=== PATIENT | female | born 1970 | race Caucasian/White ===

== ENCOUNTER → 2017-06-27 08:51 | Outpatient (CLI) | payer BC, SELFPAY ==
[2017-06-27 12:32] LABS: Cholesterol 222 mg/dL (200); High Density Lipoprotein 48 mg/dL; Triglycerides 75 mg/dL; Very Low Density Lipoprotein 15 mg/dL (5-40)
== END ==
PROVIDERS: Family Provider Family Medicine; PCP Family Medicine; Visit Provider Family Medicine
DX: E78.5 Hyperlipidemia, unspecified (principal)
CPT/HCPCS: 36415; 80061

== ENCOUNTER → 2018-09-26 10:56 | Outpatient (CLI) | payer BC, SELFPAY ==
[2018-09-26 12:18] LABS: Cholesterol 194 mg/dL (200); High Density Lipoprotein 51 mg/dL; Triglycerides 111 mg/dL; Very Low Density Lipoprotein 22 mg/dL (5-40)
== END ==
PROVIDERS: Family Provider Family Medicine; PCP Family Medicine; Visit Provider Family Medicine
DX: E78.5 Hyperlipidemia, unspecified (principal)
CPT/HCPCS: 36415; 80061

== ENCOUNTER → 2019-04-03 11:07 | Outpatient (CLI) | payer BC, SELFPAY ==
[2017-10-17 13:15] VITALS: BMI 30.7
--- NOTE | 2019-04-03 11:15 | RAD_ITS ---
STUDY: X-RAY CHEST REASON FOR EXAM: Female, 48 years old. RIGHT SIDE CHEST PAIN, AXILLARY AREA TECHNIQUE: Frontal and lateral views of the chest were performed COMPARISON: None. FINDINGS: There is an ill-defined right middle lobe opacity. There is no pneumothorax, pulmonary edema, pleural effusions or cardiomegaly. Osseous structures are intact. RAD/Chest PA and Lateral IMPRESSION: 1. Right middle lobe opacity, in the acute inflammatory setting pneumonia is most likely. Otherwise CT of the chest is recommended for definitive evaluation of underlying lung parenchyma for possible mass lesion such as lung cancer. Electronically Signed: Josué Moore, at 19:46 EST Tel , Service support ,
== END ==
LOC: MTRAD 11:10
PROVIDERS: PCP Family Medicine; Referring Provider Family Medicine; Visit Provider Family Medicine
DX: R07.9 Chest pain, unspecified (principal); R07.89 Other chest pain
CPT/HCPCS: 71046

== ENCOUNTER → 2019-04-24 13:40 | Outpatient (CLI) | payer BC, SELFPAY ==
--- NOTE | 2019-04-24 13:49 | CT_ITS ---
STUDY: CT CHEST WITH CONTRAST REASON FOR EXAM: Female, 48 years old. Right anterior chest pain x 2 months, cough, abnormal CXR, no injury, smokes less than 1 pack/day. No hypertension, diabetes, cancer, heart or lung problems. RADIATION DOSAGE (If Supplied By Facility): CTDIvol = ( 10.23 ) mGy, DLP = ( 364.35 ) mGycm TECHNIQUE: Transaxial imaging was performed following intravenous administration of IV 100mL Isovue-300. Multiplanar coronal and sagittal images were reformatted. Individualized dose optimization techniques were used for this CT. COMPARISON: Comparison is made with prior chest radiograph dated April 03, 2011. FINDINGS: There is airspace disease along the lateral aspect of the right upper lobe. This abuts the major fissure. Small right pleural effusion. Volume loss in the right hemithorax. There is evidence of a 3.3 cm x 2.7 cm soft tissue density in the region of the right hilum. Findings are suggestive of a right hilar mass with postobstructive pneumonitis. There is a 5.4 mm nodule in the inferior posterior aspect of the right upper lobe. There is also evidence of infiltration in the lateral aspect of the right middle lobe measuring 2.8 cm x 2.4 cm. A neoplastic process should be ruled out. Correlation with a PET scan is recommended. Normal heart and pericardium. Enlargement of the subcarinal lymph nodes. There is enlargement of the right hilar lymph nodes. Normal enhanced pulmonary arteries. Normal aorta arch and descending thoracic aorta. Normal osseous structures. There is no demonstrated abnormality of the visualized upper abdomen. CT/Chest WITH Contrast IMPRESSION: Small right pleural effusion with the right hilar soft tissue mass and findings suggestive of postobstructive pneumonitis in the right upper lobe. Focal nodular infiltrate is seen in the right middle lobe. A neoplastic process should be ruled out. Correlation with a PET scan is recommended. A 5.4 mm nodule is also seen in the inferior posterior aspect of the right upper lobe. Electronically Signed: Alok Dunlap, at 15:16 EDT , Service support ,
== END ==
PROVIDERS: PCP Family Medicine; Referring Provider Family Medicine; Visit Provider Family Medicine
DX: R93.89 Abnormal findings on diagnostic imaging of other specified body structures (principal); R05 Cough; R07.89 Other chest pain
CPT/HCPCS: 71260; Q9967

== ENCOUNTER → 2019-04-29 | Outpatient (CLI) | payer BC, SELFPAY ==
[2019-04-29 11:47] LABS: Absolute Lymphocyte Count 1.98 X10^3/uL (0.83-4.51); Absolute Neutrophil Count 7.1 X10^3/uL (2.0-7.7); Basophil# 0.07 X10^3/uL; Basophil% 0.6 % (0-1); Eosinophils% 10.2 % (0-5); Hematocrit 44.5 % (37-47); Hemoglobin 14.5 g/dL (12.0-15.0); Lymphocyte # 1.98 X10^3/ul (4.0); Lymphocyte % 18.4 % (19-41); Mean Corp Hgb Conc 32.6 g/dL (32-36); Mean Corpuscular Hgb 29.8 pg (27.0-32.0); Mean Corpuscular Volume 91.6 fL (81-99); Mean Platelet Vol. 9.7 fl (6.2-12.0); Monocyte# 0.57 X10^3/uL; Monocyte% 5.3 % (0-10); NRBC Flagged by Analyzer 0 % (0-5); Neutrophil # 7.05 X10^3/uL (2.7-7.7); Neutrophil % 65.3 % (47-70); Platelet Count 336 K/mm3 (150-450); RBC Distribution Width CV 12.8 % (11.6-14.6); RBC Distribution Width SD 42.9 fl (35.1-43.9); Red Blood Count 4.86 M/mm3 (4.2-5.4); White Blood Count 10.8 K/mm3 (4.4-11.0)
[2019-04-29 11:53] LABS: Prothrombin Time (Protime)PT. 13.1 SECONDS (11.7-14.9)
[2019-04-29 11:54] LABS: Partial Thromboplast Time 32.5 Seconds (24.1-36.2)
== END | disposition home or self-care (01) ==
LOC: PAVLAB 11:33
PROVIDERS: PCP Family Medicine; Referring Provider Internal Medicine Critical Care Medicine; Visit Provider Internal Medicine Critical Care Medicine
DX: R59.0 Localized enlarged lymph nodes (principal)
CPT/HCPCS: 36415; 85025; 85610; 85730

== ENCOUNTER → 2019-05-01 09:51 | Outpatient (CLI) | payer BC, SELFPAY ==
[2017-10-17 13:15] VITALS: BMI 30.7
--- NOTE | 2019-05-02 05:34 | PFTCOMP ---
COMPLETE PULMONARY FUNCTION TEST INTERPRETATION Brief HPI: Patient is a 48 year old female, currently under the care of myself, who presents to [facility] for complete pulmonary function tests secondary to diagnosis of lymphadenopathy. Respiratory therapist reports good effort and reproducible results. Interpretation: Forced expiration spirometry shows no large airways obstructive ventilatory defect with an FEV1 of 86% predicted. There is no significant bronchodilator response by strict ATS criteria. Spirograms are of good quality and plateau normally. The respiratory flow volume loop shows a normal pattern. Lung volumes by body plethysmography show a normal total lung capacity at 4.23 L, 96% predicted. All other lung volumes are within normal limits. Diffusion capacity by carbon monoxide is decreased at 60% predicted. The airway resistance is normal. No previous pulmonary function tests were available for review. Impression: Isolated reduction in diffusion capacity and a pattern consistent with a pulmonary vascular disorder.
== END ==
LOC: PSN 09:52
PROVIDERS: PCP Family Medicine; Referring Provider Internal Medicine Critical Care Medicine; Visit Provider Internal Medicine Critical Care Medicine
DX: R59.0 Localized enlarged lymph nodes (principal)
CPT/HCPCS: 94060; 94726; 94729

== ENCOUNTER 2019-05-09 10:51 | Day surgery (SDC) | payer BC, SELFPAY ==
[2017-10-17 13:15] VITALS: BMI 30.7
[2019-05-09] VITALS (7 sets, daily range): BP systolic 98–134; BP diastolic 60–81; PULSE 91–114; RESP 16–18; TEMP 36.1–36.6; O2SAT 95–99; BMI 31.6
--- NOTE | 2019-05-09 | FLU_PTH ---
PATIENT: CHRISTY LACKEY LOC: [facility] [place] U#:[id number] AGE/SX: 48/F ROOM: RE05/09/[address]: Dr. Az Watkins MD : 1970 BED: DIS: 05/09/2019 SPEC #: [id number] RECD: 05/09/19 13:21 STATUS: RICKI RETaylor #: [id number] ARMINDA: 05/09/19 00:[address]: Az Watkins DEPT: CYTOLOGY RECD BY: Gilles Loo ENTERED: 05/09/19 13:21 SP TYPE: Fluid OTHR DR: Dr. Elke Gonzalez DO Tissues: A - Lung, NOS B - Lung, NOS C - Lung, NOS D - Lung, NOS E - Lung, NOS Procedures: Special Stain Group II Surgery Specimen Level IV Cytospin Fluid Cytology Other HEADER OPERATION: EBUS PRE-OP DIAGNOSIS: RML collapse TISSUE SUBMITTED: A-D - EBUS, TBNA, aspirations 1-4, site 7, E - EBUS, TBNA, site 7 DIAGNOSIS CYTOLOGY A. EBUS, TBNA, aspiration #1, site 7: Adequate for evaluation. Polymorphous lymphocytes present. No evidence of carcinoma. B. EBUS, TBNA, aspiration #2, site 7: Adequate for evaluation. Polymorphous lymphocytes present. No evidence of carcinoma. C. EBUS, TBNA, aspiration #3, site 7: Adequate for evaluation. Polymorphous lymphocytes present. No evidence of carcinoma. D. EBUS, TBNA, aspiration #4, site 7: Positive for malignant cells consistent with small cell carcinoma. E. EBUS, TBNA, site 7 (cell block): Positive malignant cells consistent with small cell carcinoma. See comment. AM:nadine 05/14/19 COMMENT The specimen is evaluated at the time of procedure by Dr. Davis. Immediate Evaluation: A. EBUS, TBNA, aspiration #1, site 7: Adequate for evaluation. Polymorphous lymphocytes present. No evidence of carcinoma. B. EBUS, TBNA, aspiration #2, site 7: Adequate for evaluation. Polymorphous lymphocytes present. No evidence of carcinoma. C. EBUS, TBNA, aspiration #3, site 7: Adequate for evaluation. Polymorphous lymphocytes present. No evidence of carcinoma. D. EBUS, TBNA, aspiration #4, site 7: Adequate for evaluation. Abundant polymorphous lymphocytes/small blue cells. No evidence of adenocarcinoma. E. Immunohistochemistry ([id number]) supports the above diagnosis. Flow cytometric analysis of aspirate material reveals a non-hematolymphoid neoplasm with neuroendocrine differentiation consistent with small cell carcinoma. There is no evidence of lymphoma. The flow report is viewable in EMR. Case was discussed with Dr. Watkins on 05/14/19. Case has been reviewed in consultation with Dr. Ozuna who concurs with the above diagnosis. IDC:SJ CYTOLOGY STUDY Slides are reviewed. CYTOLOGY GROSS A - Received labeled with the patient's name and and designated EBUS, TBNA, aspiration #1, site 7. The specimen consists of two smears. The smears are submitted for immediate cytologic evaluation (wet read). B - Received labeled with the patient's name and and designated EBUS, TBNA, aspiration #2, site 7. The specimen consists of two smears. The smears are submitted for immediate cytologic evaluation (wet read). C - Received labeled with the patient's name and and designated EBUS, TBNA, aspiration #3, site 7. The specimen consists of two smears. The smears are submitted for immediate cytologic evaluation (wet read). D - Received labeled with the patient's name and and designated EBUS, TBNA, aspiration #4, site 7. The specimen consists of two smears. The smears are submitted for immediate cytologic evaluation (wet read). E - Received is 40 ml of red, cloudy fluid in RPMI labeled with the patient's name and and designated EBUS, TBNA, site 7 submitted for cell block. / AM:nadine 05/09/19 TC:0 CPT: 70384 x4, 38811 x4, 55333
--- NOTE | 2019-05-09 | IMM_PTH ---
PATIENT: CHRISTY LACKEY LOC: [facility] [place] U#:[id number] AGE/SX: 48/F ROOM: RE05/09/[address]: Dr. Az Watkins MD : 1970 BED: DIS: 05/09/2019 SPEC #: [id number] RECD: 05/12/19 12:09 STATUS: RICKI REQ #: [id number] ARMINDA: 05/09/19 00:[address]: Az Watkins DEPT: IMMUNOHISTOCHEMISTRY RECD BY: Rachel Humphreys ENTERED: 05/12/19 12:11 SP TYPE: IMMUNO OTHR DR: Dr. Elke Gonzalez DO Tissues: E - Lung, NOS Procedures: Synapto (add) NAPSIN A (add) CD45 (add) CD56 (add) CEA (add) CHROMO (add) CK19 (add) CK20 (add) CK7 (add) CK8 (add) KI-67 (add) P53 (add) TTF1 (add) Pankeratin (initial) NSE (add) PHYSICIAN & INSTITUTION [address] [address] SPECIMEN INFORMATION: Tissue Source: E - EBUS, TBNA, site 7 Clinical Info: MARK allen Specimen Number: [id number] CPT code: 39814, 33022 x14 METHODOLOGY: Deparaffinized sections of prefer/formalin-fixed tissue or PAP/DQ stained slides are incubated with monoclonal/polyclonal antibodies/oligonucleotide probes. Localization is made via biotin free immunoperoxidase method. Appropriate controls are performed and reacted as expected. Results on target cell population are indicated in the following table: RESULTS: ANTIBODY / CLONE RESULT Block E AE1-3 (AE1/AE3/PCK26) negative CK8 (75norqG44) negative CD45 (RP2/18) negative CD56 (123C3.D5) positive, dim Chromo (LK2H10) positive Synapto (polyclonal) negative NSE Neuron Specific Enolase positive TTF-1 (8G7G3/1) positive Napsin A (Rabbit Polyclonal) positive CEA (11-7/TF-3HB-1) negative P53 (DO-7) positive, 30% Ki-67 (30-9) positive, 25% CK7 (OV-TL12/30) negative CK20 (KS20.8) negative CK19 (A53-B/A2.26) negative These tests were developed and their performance characteristics determined by [facility]. They may not have been cleared or approved by the U.S. Food and Drug Administration. The FDA has determined that such clearance or approval is not necessary. The above immunohistochemical/dualISH markers are ordered and reviewed by the Pathologist. INTERPRETATION: E. EBUS, TBNA, site 7: Consistent with small cell carcinoma of lung origin. Case has been reviewed in consultation with Dr. Ozuna who concurs with the above diagnosis. IDC:ELLIS AM:nadine 05/14/19
--- NOTE | 2019-05-09 10:55 | PCM.HP.BLA ---
Problem List (1) Abnormal CT scan of lung Status: Acute (2) Mediastinal lymphadenopathy Status: Acute History and Physical Date of Admission: 05/09/19 Assessment & Plan Problems 1. Mediastinal lymphadenopathy R59.[address] scan of lung R91.8 Plan Patient has a significant past medical history for smoking and a positive family history for lymphoma, melanoma and colon cancer. Patient has not had a colonoscopy in the last 7 years and has not had a mammogram in the last 3. Patient recommended to have age-appropriate testing. However, given hemoptysis and mediastinal lymphadenopathy, there is significant concern for malignancy. After review of the risks, benefits and alternatives, patient has agreed to proceed with a endobronchial ultrasound with biopsy. Differential diagnosis would include lymphoma, metastatic cancer, acute pneumonia and primary lung cancer. Presurgical labs have been ordered. Complete pulmonary function test for quantification clarification of lung function. Walking oximetry to evaluate for exertional hypoxemia. Patient will be placed empirically on antibiotics for a presumed postobstructive pneumonia. Initiate Levaquin. Obtain complete PFT and walking oximetry. CBC, PTT and PT/INR prior to bronchoscopy. Orders Orders: Bronchoscopy Today R59.0 Partial Thromboplast Time Today R59.0 Prothrombin Time w/INR Today R59.0 CBC W/Diff, Automated Today R59.0 Pulmonary Function Test (Comp) Today R59.0 Simple Pulmonary Exercise Test Today R59.0 Medications New: levofloxacin 500 mg PO Q24H 10 tabs 0RF HPI abnormal chest ct/xray: Chief Complaint: Abnormal CT Details: Patient is a 48 year old Caucasion female, currently under the care of Dr. Gonzalez, who presents for evaluation secondary to an abnormal CT scan. Patient reports she was at work in February and was moving 20-30lb cans and felt a sharp pain in her right midaxillary line. Patient did not seek medical attention until her routine followup and a CXR was ordered. This culminated in a CT described below. Patient reports a 5 lb weight loss, but attributes this to moving to first shift and improved diet. Patient has had a cough that is productive of clear to white phlegm at baseline. Patient has noted streaks of bright red blood intermittently in the last 2 weeks or so. The chest pain is improved. Patient does report a bad pneumonia in October for which she was treated with antibiotics at an urgent care with resolution. No chest pain was reported at that time. Patient reports last mammogram/pelvic exam was 3 years ago and the last colonoscopy was 9 years ago. All were reportedly normal. Patient's mother has had colon cancer, lymphoma and melanoma. Patient has no suspicious moles reported. Patient smokes 1-2 ppd and has recently tried to cut back. Documentation reviewed 12 pages of documentation were reviewed prior to the office visit. Patient does have a history of hyperlipidemia, anxiety and tobacco use. Patient does use albuterol at baseline and was recently started on prednisone therapy secondary to shortness of breath. Patient has been complaining of right-sided chest pain. Imaging personally reviewed with the patient CT chest (04/24/2019): Small right pleural effusion with a right hilar soft tissue mass and suggestion of postobstructive pneumonitis in the right upper lobe. There is a focal nodular infiltrate in the right middle lobe. A 5.4 mm nodule is also seen in the inferior posterior aspect of the right upper lobe. Intake Vital Signs 04/29/19 Weight: 78.471 kg 04/29/19 BP 135/78 H 04/29/19 Pulse 81 04/29/19 Pulse Oximetry (%) 98 04/29/19 Oxygen Delivery Method room air Intake Visit Reasons: abnormal chest ct/xray Accompanied by: mom Allergies amoxicillin [From Augmentin] Adverse Reaction (Severe, Verified 04/29/19 10:37) Vomiting clavulanic acid [From Augmentin] Adverse Reaction (Severe, Verified 04/29/19 10:37) Vomiting Medications escitalopram oxalate 20 mg tablet 20 mg PO DAILY 10/17/17 [History Confirmed 04/29/19] lorazepam 0.5 mg tablet 0.5 mg PO QHS PRN 10/17/17 [History Confirmed 04/29/19] simvastatin 5 mg tablet 5 mg PO QHS 10/17/17 [History Confirmed 04/29/19] venlafaxine 37.5 mg capsule,extended release 24 hr 37.5 mg PO QDAY #30 cap 10/17/17 [Rx Confirmed 04/29/19] zolpidem 12.5 mg tablet,extended release,multiphase 12.5 mg PO QHS PRN 10/17/17 [History Confirmed 04/29/19] albuterol sulfate 90 mcg/actuation aerosol inhaler 1 inh INHALATION ONCE 04/28/19 [History Confirmed 04/28/19] aspirin 81 mg tablet,delayed release 81 mg PO DAILY 04/28/19 [History Confirmed 04/28/19] clobetasol 0.05 % topical cream 1 applic TOPICAL BID 04/28/19 [History Confirmed 04/28/19] levofloxacin 500 mg tablet 500 mg PO Q24H #10 tab 04/29/19 [Rx Confirmed 04/29/19] PFSH Medical History Anxiety and depression (Acute) Hyperlipidemia (Acute) Tobacco abuse (Acute) history of left inguinal lymph node removal (Acute) history of right ankle surgery (Acute) Surgical History History of ankle surgery (Acute) lymph node removal (Acute) Family History Mother Hyperlipidemia Colon cancer Cancer lymphoma Osteopenia Social History (Updated 04/29/19 @ 16:[address] 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 Review of Systems Const CONSTITUTIONAL: No anorexia, No body ache, No chills, No daytime sleepiness, No fever(s), No night sweats, No stops breathing during sleep, No weight loss, No weight gain, No sleeping in chair, No orthopnea, No fatigue, No headache(s), No frequent colds, No seasonal allergies, No other EETM Ear Nose Throat Mouth: No hoarseness, No Dry mouth in morning, No change in vision, No itchy eyes, No eye pain, No Swallowing Difficulty, No ear pain, No nose bleed, No headache(s), No mouth pain, No nasal congestion, No nasal discharge, No sinus pain, No sinus pressure, No sore throat, No other Cardio Cadriovascular: No chest pain, No chest pain at rest, No chest pain with activity, No irregular heart rhythm, No shortness of breath when lying down, No palpitations, No other Resp Respiratory: Yes as per HPI, No shortness of breath at rest, No pain with cough, No chest congestion, Yes cough (in the morning), No chest tightness, No pain on inspiration, Yes Inhalers (as needed), No Increase use of Rescue Inhalers, No snoring, No apnea, Yes other (SOB upon exertion) Gastro Gastrointestional: Negative bloody stools, change in appetite, difficulty swallowing, reflux, hematemesis, melena stool, loose stool, constipation or other Genitourinary: Negative blood in urine, nocturia, pain with urination or other Musc Musculoskeletal: Negative body pain, back pain, neck pain or other Skin/Breast Skin/Breast: No dry skin, No itching, No unusual bruising, No breast lump, No other Neuro Neurological: Negative restless legs, confusion, weakness or other Psych Psychocological: Negative abnormal sleep pattern, anxiety, thoughts of hurting self/others, hopelessness or other Lymph Lymphatic: No easy bleeding, No easy bruising, No other Exam Const Constitutional: Positive conversant, cooperative, in no acute respiratory distress, well developed, well nourished, good hygiene and obese; negative wearing supplemental oxygen or ill appearing Head Head: Yes normocephalic, Yes atraumatic, No cyanosis of lips/distal nose Eyes Eye: Positive clear conjunctiva; negative nystagmus, scleral abnormality or cataract present Ears Ear: Positive hearing normal and external ears normal; negative hard of hearing Nose Nose: Yes external nose normal, No nasal polyp, Yes septum normal Mouth Mouth: Positive oral mucosae normal, no lesions and good dentition; negative oral thrush present or post nasal drip Mallampati Score: II: Mallampati Score Neck Neck: Positive normal visual inspection, full ROM and trachea midline; negative lymphadenopathy or JVD Chest Wall Chest: Positive normal inspection of the chest and symmetric chest movement; negative crepitus or tenderness Resp lung sounds: Positive diminished (right base), normal expiratory time and normal respiratory effort; negative wheezes, wheeze present on forced exhalation, rhonchi, rales, dullness to percussion or use of accessory muscles Cardio Cardiac: Positive regular rate, regular rhythm, S1 normal and S2 normal; negative murmur, rub or gallop GI GI: Positive normal to inspection, normal bowel sounds and obese; negative distended, ascites or epigastric tenderness Genitourinary: Positive deferred Musc Musculoskeletal: Positive steady gait; negative using an assistive device for ambulation, kyphosis or scoliosis Skin Pulmonary Skin Exam: Positive intact; negative lesion, rash, ulcers or erythema Pulses Pulse: Yes radial pulses present Extremities Extremities: Yes capillary refill normal, No clubbing, No cyanosis, No edema Neuro Neurologic: Yes no focal neuro deficits, Yes conversant, Yes cooperative, Yes normal cognition, Yes normal coordination, Yes normal concentration, Yes understands questions Lymph Lymphatic: No lymphadenopathy Psych Appearance: Positive grossly normal Mental Status: Positive mental status grossly normal Mood: Positive anxious mood Affect: Positive anxious affect Coding Level of Care Code Off vis,new,level 5 Diagnoses Mediastinal lymphadenopathy R59.[address] scan of lung R91.8
[2019-05-09] MEDS: Lactated Ringers 1,000 ML 100 ML IV (11:20)
--- NOTE | 2019-05-09 13:13 | OP.BRONCH_ITS ---
Patient Name: Vicki Wooten Procedure Date: 05/09/2019 11:47 AM Date of : 1970 Age: 48 Procedure: Bronchoscopy Indications: Atelectasis of the right middle lobe, Unresolving right middle lobe infiltrate, Mediastinal adenopathy Providers: Az Watkins MD Referring MD: Elke Gonzalez Medicines: See the Anesthesia note for documentation of the administered medications Complications: Hypoxia Procedure: Pre-Anesthesia Assessment: - A History and Physical has been performed. The patient's medications, allergies and sensitivities have been reviewed. - The risks and benefits of the procedure and the sedation options and risks were discussed with the patient. All questions were answered and informed consent was obtained. - Patient identification and proposed procedure were verified prior to the procedure by the nurse and the truck loader. The procedure was verified in the procedure room. After I obtained informed consent, the scope was passed under direct vision. Throughout the procedure, the patient's blood pressure, pulse, and oxygen saturations were monitored continuously. The ultrasound bronchoscope was introduced through the mouth, via laryngeal mask airway and advanced to the tracheobronchial tree of both lungs. The bronchoscope was introduced through the and advanced to the. The procedure was unusually difficult due to the patient's respiratory instability (hypoxia). Successful completion of the procedure was aided by frequent breaks out of the airway with increased PEEP per truck loader. Findings: Bilateral Lung Abnormalities: Partially obstructing (about 80% obstructed) dynamic collapse was found throughout the tracheobronchial tree. An area of friable mucosa was found throughout the tracheobronchial tree. An endobronchial ultrasound endoscope was utilized in order to assist with guiding the biopsy needle and better localize the nodule in the subcarinal area. Transbronchial biopsies were performed in the subcarinal area using a 19 gauge needle and sent for routine cytology and flow cytometry. The procedure was guided by ultrasound. Biopsy of lung tissue was obtained. Four biopsy passes were performed. Four biopsy samples were obtained. Estimated blood loss: minimal. Rapid On-Site Evaluation (KATIANA): Preliminary cytology of the lesion in the subcarinal area was suggestive of benign-appearing lymphoid tissue (final results are pending). Impression: - Atelectasis of the right middle lobe - Unresolving right middle lobe infiltrate - Mediastinal adenopathy - Dynamic collapse was found throughout the tracheobronchial tree. - Friable mucosa was found throughout the tracheobronchial tree. - Endobronchial ultrasound was performed. - Transbronchial lung biopsies were performed. - Rapid On-Site Evaluation (KATIANA): Preliminary cytology of the lesion in the subcarinal area was suggestive of benign-appearing lymphoid tissue (final results are pending). - Noted to have a vocal cord hematoma on airway inspection following EBUS Recommendation: - Discharge patient to home (ambulatory). - The patient will be observed post-procedure, until all discharge criteria are met. - Await cytology results. Procedure Code(s): --- Professional --- 32925, Bronchoscopy, rigid or flexible, including fluoroscopic guidance, when performed; diagnostic, with cell washing, when performed (separate procedure) 68283, Bronchoscopy, rigid or flexible, including fluoroscopic guidance, when performed; with transendoscopic endobronchial ultrasound (EBUS) during bronchoscopic diagnostic or therapeutic intervention(s) for peripheral lesion(s) (List separately in addition to code for primary procedure[s]) 58454, Unlisted procedure, trachea, bronchi Diagnosis Code(s): --- Professional --- J98.11, Atelectasis R91.8, Other nonspecific abnormal finding of lung field R59.0, Localized enlarged lymph nodes J98.09, Other diseases of bronchus, not elsewhere classified CPT copyright 2017 [employer]. All rights reserved. The codes documented in this report are preliminary and upon metal stamper review may be revised to meet current compliance requirements. MD Az Ware MD 05/09/2019 1:12:42 PM This report has been signed electronically. Number of Addenda: 0 Note Initiated On: 05/09/2019 11:47 AM
[2019-05-09] MEDS: Lidocaine 2% Jelly 1 APPLIC Tube (14:40)
== END 2019-05-09 14:50 | disposition home or self-care (01) ==
LOC: SDC 10:53 → AC 10:54
PROVIDERS: PCP Family Medicine; Referring Provider Family Medicine; Visit Provider Internal Medicine Critical Care Medicine
PROC: BB4BZZZ Ultrasonography of Pleura (ICD-10-PCS; CPT 31622; principal; 2019-05-09 11:30)
DX: R04.2 Hemoptysis (principal); J98.11 Atelectasis; R59.0 Localized enlarged lymph nodes; R94.2 Abnormal results of pulmonary function studies; F32.9 Major depressive disorder, single episode, unspecified; F41.9 Anxiety disorder, unspecified; F17.200 Nicotine dependence, unspecified, uncomplicated; E78.5 Hyperlipidemia, unspecified; Z79.82 Long term (current) use of aspirin; Z88.1 Allergy status to other antibiotic agents; Z88.0 Allergy status to penicillin; Z87.01 Personal history of pneumonia (recurrent)
CPT/HCPCS: 31622; 31654; 88108; 88161; 88305; 88313; 88341; 88342; J7120; J2405

== ENCOUNTER → 2019-05-13 10:48 | Outpatient (CLI) | payer BC, SELFPAY ==
[2019-05-09 11:15] VITALS: BMI 31.6
[2019-05-13 11:19] VITALS: PULSE 100; PULSE 105; PULSE 106; PULSE 126; PULSE 87; PULSE 91; O2SAT 91; O2SAT 92; O2SAT 93; O2SAT 94; O2SAT 96; O2SAT 98
--- NOTE | 2019-05-14 17:31 | PCM.PSN.6M ---
PSN 6 Minute Walk Test - 6 Minute Walk Test 6 Minute Walk Test: 6 Minute Walk Test PSN:6-Minute Walk Test Start: 05/13/19 11:13 Freq: Status: Active Protocol: RESP.6MINW Document 05/13/19 11:19 ISIAH (Rec: 05/13/19 11:22 ISIAH [id number]) 6 Minute Walk Test Date Performed 05/13/19 Time Performed 11:00 Height 5 ft 2 in Weight: 78.106 kg Weight in Pounds 172.[address]: Az Watkins Assistive device used: None Pre-test Oxygen Delivery Method Room Air Pulse Ox (%) 96 Pulse Rate (60-100 beats/min) 87 Dyspnea Melina Scale (0-10) 0 Exertion Melnia Scale (6-20) 6 1st minute Oxygen Delivery Method Room Air Pulse Ox (%) 91 Pulse Rate (60-100 beats/min) 105 H 2nd minute Oxygen Delivery Method Room Air Pulse Ox (%) 92 Pulse Rate (60-100 beats/min) 126 H 3rd minute Oxygen Delivery Method Room Air Pulse Ox (%) 93 Pulse Rate (60-100 beats/min) 100 4th minute Oxygen Delivery Method Room Air Pulse Ox (%) 91 Pulse Rate (60-100 beats/min) 106 H 5th minute Oxygen Delivery Method Room Air Pulse Ox (%) 91 Pulse Rate (60-100 beats/min) 105 H 6th minute Oxygen Delivery Method Room Air Pulse Ox (%) 94 Pulse Rate (60-100 beats/min) 105 H Dyspnea Melina Scale (0-10) 0 Exertion Melina Scale (6-20) 11 Post-test Oxygen Delivery Method Room Air Pulse Ox (%) 98 Pulse Rate (60-100 beats/min) 91 Full Laps Walked 21 Partial Lap, Number of Tiles Walked 17 Total Distance Walked (ft) 1256 - Interpretation Interpretation: The patient was able to ambulate 1256 feet over the course of 6 minutes on room air with no assistive devices or breaks. The patient did have an oxygen aminah as low as 91% and a peak heart rate of 126 bpm. These findings are consistent with a respiratory limitation exercise tolerance. - Recommendations Recommendations: No supplemental oxygen is indicated at this time. However, patient will need to be followed closely given level of desaturation.
== END ==
LOC: PSN 10:50
PROVIDERS: PCP Family Medicine; Referring Provider Internal Medicine Critical Care Medicine; Visit Provider Internal Medicine Critical Care Medicine
DX: R59.0 Localized enlarged lymph nodes (principal)
CPT/HCPCS: 94618

== ENCOUNTER → 2019-05-19 07:46 | Outpatient (CLI) | payer BC, SELFPAY ==
[2019-05-15 10:16] VITALS: BMI 31.6
--- NOTE | 2019-05-19 08:30 | PET_ITS ---
PROCEDURE: WHOLE BODY PET/CT SCAN, MID SKULL TO MID THIGH REASON FOR EXAM: Lung cancer, initial staging COMPARISON EXAMINATION: None. TECHNIQUE: Following the intravenous administration of 15.8 mCi of F-18 the deoxyglucose, multiplanar imaging acquisitions of the neck, chest, abdomen/pelvis to the mid thigh, obtained at 1 hour post radiopharmaceutical administration. Interpretation is with co-registeration of similar anatomic distribution of CT. Findings: Normal and physiologic distribution of radioisotope identified in the expected intensity of the hepatic and splenic parenchyma, urinary tract and gastrointestinal structures. There is gross anatomic distribution of the intracranial contents. INDEX LESION SIZE SUV INTERPRETATION: 1. 3.3 x 2.7 cm soft tissue mass of the anterior right hilum on CT image 87 is stable in size with SUV 7.3. Adenopathy of the subcarinal (station 7) region measures 1.5 x 2.1 cm with SUV measuring 5.6. CT portion of the exam: Small to moderate right pleural effusion is increased in size since the prior study. Subpleural dominant consolidation involving the lateral and anterior right upper lobe with generalized volume loss of the right upper lobe. Amorphous increased FDG activity with some localized areas of increased FDG activity measuring SUV 4.3. On the prior CT, there was a larger area of consolidation slightly more inferior and posterior. Granuloma in the left upper lobe is stable. There are emphysematous changes of the lungs. There is no demonstrated pleural abnormality. Heart size is stable. Trace pericardial fluid is similar. Normal mediastinum. Normal hilar regions. Normal unenhanced pulmonary arteries. Normal aorta arch and descending thoracic aorta. Normal liver. Normal gallbladder and extrahepatic biliary system. There are multiple benign calcified granulomata of the spleen. Normal pancreas. Normal bilateral adrenal glands. Normal right kidney. Normal left kidney. Normal visualized stomach. Normal small intestine. Normal colon. There is non-visualization of the appendix. There is diffuse atherosclerotic calcification of the abdominal aorta, without a demonstrated aneurysm. Normal inferior vena cava. Normal urinary bladder. There is an IUD within the uterus. No lytic or sclerotic bone lesions. PET/PET/CT Tumor Base -Thigh Init IMPRESSION: 1. ABNORMAL EXAMINATION. Right parahilar mass and subcarinal/Station 7 adenopathy meeting criteria for viable neoplasm. 2. Subpleural somewhat nodular consolidation of the right upper lobe, new since the prior study with amorphous and localized increased FDG activity, equivocal for viable neoplasm; could represent postobstructive pneumonia. Follow-up chest CT to evaluate for stability recommended in 4-6 weeks after appropriate medical therapy. 3. Mildly increased right pleural effusion. 4. Chronic changes, as detailed above. Electronically Signed: Augustine Venegas MD ([place]) at 12:31 EDT , Service support ,
== END ==
LOC: ONC 07:47
PROVIDERS: PCP Family Medicine; Referring Provider Internal Medicine Critical Care Medicine; Visit Provider Internal Medicine Critical Care Medicine
DX: C34.2 Malignant neoplasm of middle lobe, bronchus or lung (principal)
CPT/HCPCS: 78815; A9552

== ENCOUNTER → 2019-05-21 12:19 | Outpatient (CLI) | payer BC, SELFPAY ==
[2019-05-15 10:16] VITALS: BMI 31.6
[2019-05-20 11:01] VITALS: BMI 31.2
--- NOTE | 2019-05-21 12:21 | MRI_ITS ---
STUDY: MRI BRAIN WITH AND WITHOUT CONTRAST REASON FOR EXAM: Female, 48 years old. lung ca staging -- no neuro symptoms TECHNIQUE: Standardized multiplanar fat and water weighted pulse sequences were obtained. dotarem 15 ml iv was administered for the contrast portion of the examination. COMPARISON: CT of the chest dated April 24, 2019 FINDINGS: Normal size of the ventricles and extra-axial spaces for the patient''s age. Normal white matter tracts of the supratentorial brain. There is no evidence for recent intracranial ischemia or other cause of cytotoxic edema on diffusion weighted imaging (DWI). Normal T2* images of the brain without demonstrated susceptibility artifact. There is no demonstrated hemosiderin stain. Normal bilateral basal ganglia. Normal thalami. There is no extra-axial fluid accumulation. Normal flow voids within the major intracranial circulation suggesting patency by spin echo criteria. Normal venous enhancement. There is no enhancing intra-axial or extra-axial abnormality. No demonstrated enhancing lesion or abnormal meningeal or dural enhancement. Normal sella turcica, pituitary gland, infundibular stalk, optic chiasm and hypothalamus. Normal tectal plate and pineal gland. Mild patchy chronic ischemic changes are present in the giacomo and midbrain. Normal medulla. Normal cerebellum. Normal basal cisterns. Normal bilateral temporal bones. Normal bilateral internal auditory canals. No demonstrated orbital abnormality, within the constraints of a routine brain study. Normal visualized paranasal sinuses. Normal calvarium and skull base. Normal visualized soft tissue structures. Normal visualized upper cervical spine. MRI/Brain W/WO Contrast IMPRESSION: 1. Mild chronic patchy ischemic changes of the giacomo and midbrain. 2. No demonstrated acute infarct. 3. No demonstrated lesions of the brain or abnormal enhancement. Electronically Signed: Joe العلي MD at 15:27 EDT , Service support ,
== END ==
PROVIDERS: PCP Family Medicine; Referring Provider Internal Medicine Critical Care Medicine; Visit Provider Internal Medicine Critical Care Medicine
DX: C34.90 Malignant neoplasm of unspecified part of unspecified bronchus or lung (principal)
CPT/HCPCS: 70553; A9575

== ENCOUNTER 2019-05-22 09:47 | Day surgery (SDC) | payer BC, SELFPAY ==
[2019-05-20 11:01] VITALS: BMI 31.2
--- NOTE | 2019-05-20 11:16 | HP_ITS ---
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: No Is patient in pain?: No Allergies amoxicillin [From Augmentin] Adverse Reaction (Severe, Verified 05/20/19 09:37) Vomiting clavulanic acid [From Augmentin] Adverse Reaction (Severe, Verified 05/20/19 09:37) Vomiting Medications escitalopram oxalate 20 mg tablet 20 mg PO DAILY 10/17/17 [History Confirmed 05/20/19] lorazepam 0.5 mg tablet 0.5 mg PO TID 10/17/17 [History Confirmed 05/20/19] simvastatin 5 mg tablet 5 mg PO QHS 10/17/17 [History Confirmed 05/20/19] zolpidem 12.5 mg tablet,extended release,multiphase 12.5 mg PO QHS PRN 10/17/17 [History Confirmed 05/20/19] clobetasol 0.05 % topical cream 1 applic TOPICAL BID 04/28/19 [History Confirmed 05/20/19] Buspirone HCl 7.5 mg PO BID 05/02/19 [History Confirmed 05/20/19] albuterol sulfate 90 mcg/actuation aerosol inhaler 1 inh INHALATION ONCE 05/15/19 [History Confirmed 05/20/19] Bupropion HCl [Wellbutrin Sr] 150 mg PO DAILY 05/20/19 [History Confirmed 05/20/19] DiphenhydrAMINE [Benadryl] 2 tab PO QHS 05/20/19 [History Confirmed 05/20/19] Is last menstrual period known: No Post menopausal: No Patient : No PFSH Medical History Anxiety and depression (Acute) Hyperlipidemia (Acute) Tobacco abuse (Acute) history of left inguinal lymph node removal (Acute) history of right ankle surgery (Acute) Surgical History History of ankle surgery (Acute) lymph node removal (Acute) Family History Mother Hyperlipidemia Colon cancer Cancer lymphoma Osteopenia Social History (Updated 05/20/19 @ 11:[address] 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 The patient has small cell lung carcinoma. She needs access for chemotherapy. ROS General General: No weight change, appetite, fatigue, colon cancer, breast cancer or weakness HEENT HEENT: No difficulty swallowing, eye injury, eye surgery, swollen glands or hoarseness Endo Endocrine: No thyroid disease, diabetes mellitus, thyroid cancer, Hair loss, heat intolerance or cold intolerance Cardio Cardiovascular: No murmur, pacemaker, heart disease, atrial fibrillation, high blood pressure, heart attack, heart stent, palpitations, shortness of breat with exertion or chest pain Resp Respiratory: No shortness of breath, No sleep apnea, No cough, No COPD, No asthma, No emphysema, No wheezing Additional Details: Coughing up blood Gastro Gastrointestinal: No abdominal pain, No nausea or vomiting, No diarrhea, No constipation, No blood in stool, No acid reflux, No hemorrhoids, No ulcers, No gallbladder problem, No black,tarry stools Ed Hematologic: No blood thinners, No blood disorders, No bleeding, No anemia, No blood clots Neuro Neurologic: No weakness Exam Const General: cooperative Orientation: alert, oriented x3 Resp Effort & Inspection: normal respiratory effort Auscultation: clear to auscultation bilaterally Cardio Rate: regular rate Rhythm: regular rhythm Heart Sounds: no murmurs GI Inspection: non-distended Palpation: soft, nontender Assessment & Plan Problems 1. Small cell lung cancer C34.90 2. Tobacco abuse Z72.0 3. Encounter for adjustment and management of vascular access device Z45.2 Plan I discussed port placement with the patient in detail. I discussed the procedure in detail as well as the risks including but not limited to bleeding, infection, pneumothorax, DVT, line infection. The patient understands and is willing to proceed. All questions were answered sufficiently. Plan for port placement later this week. On 04/29/2019 the [place] Department of Health ([facility]) Public Order signed by [facility] Director Coby Ivory M.D., regarding the Management of Non-Essential Surgeries and Procedures for the purpose of preserving Personal Protective Equipment (PPE) and critical hospital capacity and resources within [place] went into effect as of 04/30/2019 at 5:00PM. According to the [facility] Public Order: This action will remain in full force and effect until the State of Emergency declared by the Governor no longer exists or the Director of the [facility] rescinds or modifies this Order. This [facility] order stated all non-essential or elective surgeries and procedures that utilize PPE should be delayed unless there is undue risk to the current or future health of a patient. After reviewing the aforementioned [facility] Public Order and the patients clinical case, I have determined that the scheduled procedure meets the criteria to go forward. Reason for performing procedure: There is a risk of metastasis or progression of staging. Bill Robles MD Pager: [facility] [address] [place] [address], [address] [place] [address] Office: Coding Level of Care Code Off vis,new,level 3 Diagnoses Small cell lung cancer C34.90 Tobacco abuse Z72.0 Encounter for adjustment and management of vascular access device Z45.2 05/20/19 1116 <Electronically signed by Bill pearce MD> Date _ Bill Robles MD I have re-examined the patient. There are no clinical changes since date of exam.
[2019-05-22 10:23] VITALS: BP 116/73; PULSE 82; RESP 16; TEMP 37; O2SAT 97; BMI 31.1
[2019-05-22] MEDS: Lactated Ringers 1,000 ML 100 ML IV (10:26)
[2019-05-22] MEDS: Bupiv/Epi 0.5% Mpf 30 ML Vial (11:50)
[2019-05-22 12:15] VITALS: BP 101/65; BP 116/73; PULSE 86; RESP 16; TEMP 36.6; O2SAT 97
[2019-05-22 12:20] VITALS: BP 111/70; BP 116/73; PULSE 78; RESP 16; O2SAT 97
[2019-05-22 12:25] VITALS: BP 100/71; BP 116/73; PULSE 76; RESP 16; O2SAT 98
--- NOTE | 2019-05-22 12:26 | RAD_ITS ---
STUDY: X-RAY CHEST REASON FOR EXAM: Female, 48 years old. post port placement TECHNIQUE: 2 AP portable view of the chest. COMPARISON: April 03, 2019. PET CT exam dated May 19, 2019 FINDINGS: 1. Interval appearance of mild irregular consolidation in the inferior aspect of the right upper lobe. 2. Interval worsening of edema/consolidation of the right lower lobe now involving the mary, medial basilar segment, and the original finding in the midline. Severity is moderate. 3. A small right lower lobe pleural effusion is present. 4. The left lung is clear. 5. Interval placement of a right chest port with a catheter terminating in the mid SVC. 6. No pneumothorax is seen. 7. Normal heart size. Stable osseous structures. RAD/CXR for Line Placement IMPRESSION: * Newly developed mild right upper lobe infiltrate * Interval worsening of right lower lobe edema and infiltrates, moderate in severity. Findings correspond to the PET CT exam showing a mass in this region. Parapneumonic consolidation is also a possibility. Electronically Signed: Joe العلي MD at 13:05 EDT , Service support ,
--- NOTE | 2019-05-22 12:26 | PCM.OPRPT ---
Problem List (1) Encounter for adjustment and management of vascular access device Status: Acute (2) Small cell lung cancer Status: Acute Report of Operation Date of Procedure: 05/22/19 Pre-Operative Diagnosis: Small cell lung carcinoma need for vascular access Post-Operative Diagnosis: Same Surgery/Procedure Performed:: Ultrasound and fluoroscopy guided right chest port placement utilizing right IJ Description of Procedure: After obtaining informed consent patient was brought back to the operating room MAC anesthesia was induced and the right chest and neck were prepped in normal sterile fashion. Ultrasound was used to evaluate both IJs and the right IJ was selected. Next, using a needle, the right IJ was accessed and a guidewire was passed on into the superior vena cava under fluoroscopy guidance. A small incision was made over the puncture site and the dilator introducer was placed over the guidewire. Next this was capped and the pocket was made for the port. 1% lidocaine with epinephrine was injected in the proposed port site. An incision was made with scalpel. Electrocautery was used to make a pocket under the skin and subcutaneous tissue. Hemostasis was obtained. Next, the catheter was tunneled up to the neck incision site and placed through the introducer. The peel-away introducer was removed and the position of the catheter was confirmed on fluoroscopy. Next, the catheter was trimmed and attached to the port with the locking device. Interrupted 2-0 Vicryl sutures were used to anchor the port to the chest wall and then the port was placed inside the pocket. The pocket was then flushed with saline and the port irrigated with saline. There was good blood return and the port flushed easily. Next, heparin was injected into the port. The skin was closed with subcutaneous interrupted 3-0 Vicryl sutures. A single 3-0 Vicryl sutures placed under the skin at the neck incision site. Steri-Strips were placed as well as op sites. Patient tolerated procedure well, was taken to PACU in stable condition. Chest x-ray will be obtained. Grafts/Implants Used: 8 Hebrew PowerPort - Admit VTE Documentation VTE Mechan Device Prophylaxis: SCD's
--- NOTE | 2019-05-22 12:28 | DCINST_ITS ---
Discharge Diet: No Restrictions - Pain medication may cause nausea. You should typically eat light foods as you take your pain medication. Discharge Activity: Return to Normal Activity, May Shower - with your bandage in place in 1-2 days after surgery. DO NOT SHOWER WHEN YOUR PORT IS ACCESSED. Call your doctor if your incision/area has: Continuous Slow Oozing, Sudden Increased Bleeding, Increased Pain/ Swelling, Increased Redness Call your doctor if you observe: Fever of 101 or Higher Remove Dressing in (days):: 3 - When you remove the bandage, Remove steri strips in 7-10 days Allergies/Adverse Reactions: Allergies amoxicillin [From Augmentin] Adverse Reaction (Severe, Verified 05/20/19 15:10) Vomiting clavulanic acid [From Augmentin] Adverse Reaction (Severe, Verified 05/20/19 15:10) Vomiting Medications to take at Discharge escitalopram oxalate 20 mg tablet 20 mg PO DAILY 10/17/17 lorazepam 0.5 mg tablet 0.5 mg PO TID 10/17/17 simvastatin 5 mg tablet 5 mg PO QHS 10/17/17 zolpidem 12.5 mg tablet,extended release,multiphase 12.5 mg PO QHS PRN 10/17/17 clobetasol 0.05 % topical cream 1 applic TOPICAL BID 04/28/19 Buspirone HCl 7.5 mg PO BID 05/02/19 albuterol sulfate 90 mcg/actuation aerosol inhaler 1 inh INHALATION ONCE 05/15/19 Bupropion HCl [Wellbutrin Sr] 150 mg PO DAILY 05/20/19 DiphenhydrAMINE [Benadryl] 2 tab PO QHS 05/20/19 Primary Care Physician: Elke Gonzalez DO [Primary Care Provider] - Test Results: Test results from this visit will be discussed in further detail at your follow- up appointment, if applicable. Please Follow Up With: Bill Robles MD When: Will call you for follow up. If there are any issues call [phone]
[2019-05-22 12:30] VITALS: BP 116/73; BP 120/69; PULSE 76; RESP 16; TEMP 36.6; O2SAT 98
[2019-05-22] MEDS: Acetaminophen 325 MG Tablet PO (12:48)
[2019-05-22] MEDS: oxyCODONE 5 MG Tablet PO (12:49)
[2019-05-22 13:15] VITALS: BP 116/73
== END 2019-05-22 13:23 | disposition home or self-care (01) ==
LOC: SDC 09:49 → AC 09:49
PROVIDERS: PCP Family Medicine; Referring Provider Surgery; Visit Provider Surgery
PROC: (CPT 36561; principal; 2019-05-22 11:15)
DX: Z45.2 Encounter for adjustment and management of vascular access device (principal); C34.90 Malignant neoplasm of unspecified part of unspecified bronchus or lung; E78.5 Hyperlipidemia, unspecified; F32.9 Major depressive disorder, single episode, unspecified; F41.9 Anxiety disorder, unspecified; F17.200 Nicotine dependence, unspecified, uncomplicated; Z78.0 Asymptomatic menopausal state; Z79.899 Other long term (current) drug therapy; Z88.0 Allergy status to penicillin; Z88.1 Allergy status to other antibiotic agents
CPT/HCPCS: 36561; 76937; 71045; 77001; J7120; C1788; J2405

== ENCOUNTER 2019-06-06 10:57 | Emergency (ER) | payer BC, SELFPAY ==
[2019-05-27 13:36] VITALS: BMI 31.4
[2019-06-05 10:21] VITALS: BMI 31.6
[2019-06-06 11:00] VITALS: BP 141/71; PULSE 111; RESP 18; RESP 19; TEMP 36.7; O2SAT 96; BMI 32.0
--- NOTE | 2019-06-06 11:40 | CT_ITS ---
STUDY: CTA CHEST REASON FOR EXAM: Female, 48 years old. PE SMALL CELL LUNG-CHEMO CURRENTLY RADIATION DOSAGE (If Supplied By Facility): CTDIvol = ( 10.05 ) mGy, DLP = ( 376.80 ) mGycm TECHNIQUE: The examination was performed with the intravenous administration of 75cc ISOVUE 370. Post-processing of the angiographic images was performed, with multiplanar reformation and 3D reconstruction. Individualized dose optimization techniques were used for this CT. COMPARISON: Comparison is made with prior CT scan of the thorax dated April 24, 2019. FINDINGS: Normal enhancement of the main pulmonary artery and right and left pulmonary arteries. Normal enhancement of the bilateral peripheral pulmonary arteries. There is no demonstrated pulmonary embolism. Normal thoracic aorta and visualized great vessels. There is no demonstrated aortic dissection. Normal heart and pericardium. Decreased size of the subcarinal mediastinal lymph nodes. There has been a decrease in size of the right hilar lymph nodes. Normal visualized trachea and bronchi. The lungs are well expanded. The previously seen consolidation in the lateral aspect of the right upper lobe has improved. Residual consolidation in the peripheral aspect of the right upper lobe persists. Evidence of a 1.8 cm x 2.2 cm soft tissue density. Small right pleural effusion. Normal chest wall structures. There are degenerative changes of thoracic spine. Normal visualized upper abdomen. CT/CTA Chest W/WO Contrast IMPRESSION: No evidence of pulmonary embolism. Small right pleural effusion. Interval improvement in the infiltration in the peripheral aspect of the right upper lobe as described. Decreased size of the right hilar and mediastinal lymphadenopathy. Electronically Signed: Alok Dunlap, at 13:02 EDT , Service support ,
--- NOTE | 2019-06-06 11:40 | EKG12_ITS ---
Test Reason : RIGHT FLANK PAIN Blood Pressure : / mmHG Vent. Rate : 082 BPM Atrial Rate : 082 BPM P-R Int : 158 ms QRS Dur : 076 ms QT Int : 376 ms P-R-T Axes : 055 073 055 degrees QTc Int : 439 ms Normal sinus rhythm Normal ECG Confirmed by CAMERON JUDGE, PAL ([id number]), metropolitan editor NORA PIERSON ([id number]) on 06/09/2019 10:06:52 AM Referred By: HEIDY Confirmed By:PAL BARNES MD
--- NOTE | 2019-06-06 11:44 | NURSING ---
NO OLD EKGS
[2019-06-06 11:47] VITALS: O2SAT 97
[2019-06-06] MEDS: Aspirin 81 MG TAB.CHEW 324 MG PO (11:53)
[2019-06-06] MEDS: 0.9% Normal Saline 1,000 ML 1000 ML IV (11:53)
[2019-06-06 11:58] LABS: Absolute Lymphocyte Count 0.92 X10^3/uL (0.83-4.51); Absolute Neutrophil Count 3.7 X10^3/uL (2.0-7.7); Basophil# 0.05 X10^3/uL; Basophil% 0.9 % (0-1); Eosinophil# 0.18 X10^3/uL; Eosinophils% 3.3 % (0-5); Hematocrit 39.5 % (37-47); Hemoglobin 12.7 g/dL (12.0-15.0); Lymphocyte # 0.92 X10^3/ul (4.0); Mean Corp Hgb Conc 32.2 g/dL (32-36); Mean Corpuscular Hgb 29.5 pg (27.0-32.0); Mean Corpuscular Volume 91.6 fL (81-99); Mean Platelet Vol. 10.2 fl (6.2-12.0); Monocyte# 0.48 X10^3/uL; Monocyte% 8.9 % (0-10); NRBC Flagged by Analyzer 0 % (0-5); Neutrophil # 3.72 X10^3/uL (2.7-7.7); POSITIVE MORPHOLOGY YES; Platelet Count 173 K/mm3 (150-450); RBC Distribution Width CV 13.2 % (11.6-14.6); RBC Distribution Width SD 44.5 fl (35.1-43.9); Red Blood Count 4.31 M/mm3 (4.2-5.4); White Blood Count 5.4 K/mm3 (4.4-11.0)
[2019-06-06 11:59] LABS: Differential Indicated SCAN CRITERIA MET
[2019-06-06 12:10] LABS: ALB/GLOB Ratio 0.8 RATIO (0.9-2.4); AST(SGOT) 45 U/L (15-37); Alanine Aminotransfer ALT/SGPT 107 U/L (13-56); Albumin, Serum 3.6 g/dL (3.2-5.0); Alkaline Phosphatase 151 U/L (45-117); Anion Gap 6 (5-15); BUN 10 mg/dL (7-18); BUN/Creat Ratio 11.2 RATIO (10-20); Calcium,Total 9.4 mg/dL (8.5-10.1); Chloride 106 mmol/L (98-107); EST Glomerular Filtration Rate 71 mL/min (>60); Est Glom Filt Rate - Afr Amer 86 mL/min (>60); Estimated Creatinine Clearance 60.46 ml/min; Globulin 4.5 g/dL (2.2-4.2); Glucose 118 mg/dL (74-106); Lipase 56 U/L (73-393); Protein, Total 8.1 g/dL (6.4-8.2); Sodium Level 138 mmol/L (136-145)
[2019-06-06 13:00] VITALS: BP 112/77; PULSE 80; RESP 17; O2SAT 100
--- NOTE | 2019-06-06 13:22 | ED.DCSUM_ITS ---
- ER Visit Summary Date of Service: 06/06/19 Chief Complaint: Chest pain History of Present Illness: The patient is a [address] Gonzalez and Dr. Oleary. She has a history of lung cancer. She has had 3 doses of chemo of the last being May 28. Reports at 4:00 this morning she was awakened by a sha rp right-sided chest pain that lasted approximately 2-1/2 hours. It was 9-10 at worst and she is pain-free currently. It was worsened by breathing it was relieved by moving around. Patient denies any fever or chills. She denies cough or shortness of breath. She denies abdominal pain, nausea, vomiting, or diarrhea. Physical Examination: Vitals: Stable. Afebrile. General: Well-nourished and well-developed. Head: Normocephalic atraumatic. Neck: Supple, no lymphadenopathy. No JVD. Nontender. Cardiovascular: Regular rate and rhythm. No murmurs. Respiratory: No respiratory distress. Clear to auscultation bilaterally. Abdominal: Soft, nontender, nondistended, normal bowel sounds. No guarding, rebound, or peritoneal signs. Back: Nontender. Extremities: Nontender, no edema. Skin: Normal color, no rash. Neurologic: Alert and oriented ?3. Cranial nerves II through XII are intact. Normal strength and sensation. Psych: Normal affect. Test Results: EKG is sinus at 82 with no acute changes. CBC is marked for lymphocytes 17. Chem-7 shows a glucose of 118. LFTs show an ALT of 107, AST of 45, alk phos of 151. Lipase is 56. Troponin is negative. Clinical Impression(s) from Imaging Studies Chest CTA 06/06/19 11:40 IMPRESSION: No evidence of pulmonary embolism. Small right pleural effusion. Interval improvement in the infiltration in the peripheral aspect of the right upper lobe as described. Decreased size of the right hilar and mediastinal lymphadenopathy. Electronically Signed: Alok Dunlap, at 13:02 EDT , Service support , Emergency Department Course and Treatment: Patient refused pain medications. She is resting comfortably. Treatment Plan: The patient was discussed with Dr. Oleary. At this time he does not want her placed on antibiotics. She will be discharged with instructions to follow-up as previously scheduled. Return to the emergency department for any worsening symptoms. Disposition: To home in improved and stable condition. Impression: 1. Atypical chest pain. 2. History of lung cancer on chemotherapy. This note was generated with Snipshot dictation software. It may contain incorrect words, spelling, and punctuation that were not noted in review of the chart prior to signing ED Disposition - Plan for ED Patient: Disposition: Home or Assisted Living Instructions: ED Chest Pain Atypical Unkn Cause Referrals: Elke Gonzalez DO [Primary Care Provider] - Jermaine Oleary MD [STAFF PHYSICIAN] - Keep Karolina appointment
== END 2019-06-06 14:20 | disposition home or self-care (01) ==
PROVIDERS: Emergency Provider Emergency Medicine; PCP Family Medicine
DX: R07.89 Other chest pain (principal); C34.90 Malignant neoplasm of unspecified part of unspecified bronchus or lung; J90 Pleural effusion, not elsewhere classified; Z79.899 Other long term (current) drug therapy; Z72.0 Tobacco use
CPT/HCPCS: 71275; 80053; 83690; 84484; 85025; 93005; 96360; 99285; J7030; Q9967; A4216

== ENCOUNTER → 2019-08-26 12:30 | Outpatient (CLI) | payer BC, SELFPAY ==
[2019-05-27 13:36] VITALS: BMI 31.4
[2019-08-05 09:54] VITALS: BMI 30.4
[2019-08-06 14:00] VITALS: BMI 30.4
--- NOTE | 2019-08-26 12:31 | CT_ITS ---
STUDY: CT CHEST WITH CONTRAST REASON FOR EXAM: Female, 49 years old. LUNG CA,SMOKER, ASSESS RESPONSE TO CHEMO-LAST TX JULY, ALSO HAD RAD TX JUNE 2019 RADIATION DOSAGE (If Supplied By Facility): CTDIvol = ( 14.31 ) mGy, DLP = ( 997.28 ) mGycm TECHNIQUE: Transaxial imaging was performed following intravenous administration of IV 100mL Isovue-300. Multiplanar coronal and sagittal images were reformatted. Individualized dose optimization techniques were used for this CT. COMPARISON: Comparison is made with prior examination dated April 24, 2019. FINDINGS: A right-sided portacatheter is seen with the tip in the superior vena cava. The soft tissue density in the lateral aspect of the right middle lobe which abuts the right pleural surface has decreased in size. It presently measures 2.1 cm x 1.7 cm. Minimal residual increased linear markings are seen in the surrounding lung. The previously seen pleural-based soft tissue density in the lateral aspect of the right upper lobe as decreased in size as well. It presently measures 1.9 cm x 1 cm. The previously seen increased markings in the surrounding right upper lobe have improved. Residual changes persist. There is no demonstrated pleural abnormality. Normal heart and pericardium. There are multiple small lymph nodes within the mediastinum, which are normal in size and morphology most compatible with reactive lymph hyperplasia. The right hilar lymphadenopathy as improved minimal residual change persists. Normal enhanced pulmonary arteries. Normal aorta arch and descending thoracic aorta. Normal osseous structures. There is no demonstrated abnormality of the visualized upper abdomen. CT/Chest WITH Contrast IMPRESSION: Interval improvement in the peripheral based soft tissue density in the lateral aspect of the right upper lobe as well as the right middle lobe. Moderate improvement of the right hilar lymphadenopathy. Electronically Signed: Alok Dunlap, at 14:09 EDT , Service support ,
--- NOTE | 2019-08-26 12:31 | CT_ITS ---
STUDY: CT ABDOMEN WITH CONTRAST REASON FOR EXAM: Female, 49 years old. LUNG CA,SMOKER, ASSESS RESPONSE TO CHEMO-LAST TX JULY, ALSO HAD RAD TX JUNE 2019 RADIATION DOSAGE (If Supplied By Facility): CTDIvol = ( 14.31 ) mGy, DLP = ( 997.28 ) mGycm TECHNIQUE: Transaxial images were obtained post I.V. administration of IV 100mL Isovue-300, and without oral contrast. Sagittal and coronal images were reconstructed. Individualized dose optimization techniques were used for this CT. COMPARISON: None. FINDINGS: Mild degree of increased markings in the right middle lobe abutting the right major fissure. The visualized portions of the heart are within normal limits. Normal liver. Normal gallbladder and extrahepatic biliary system. There are multiple benign calcified granulomata of the spleen. Normal pancreas. Normal bilateral adrenal glands. Normal right kidney. Normal left kidney. There is a small hiatal hernia. Normal small intestine. Normal colon. The appendix is visualized and appears normal. There is scattered atherosclerotic calcification of the abdominal aorta, without a demonstrated aneurysm. Normal inferior vena cava. Normal retroperitoneum. Normal abdominal wall. Normal osseous structures. CT/Abdomen WITH IV Contrast IMPRESSION: Mild degree of increased markings in the right middle lobe. No acute abnormality seen. Electronically Signed: Alko Dunlap, at 13:59 EDT , Service support ,
[2019-08-26] MEDS: 0.9% Saline Lock 10 ML Syringe IV (12:50)
== END ==
PROVIDERS: PCP Family Medicine; Referring Provider Internal Medicine Hematology & Oncology; Visit Provider Internal Medicine Hematology & Oncology
DX: C34.90 Malignant neoplasm of unspecified part of unspecified bronchus or lung (principal)
CPT/HCPCS: 71260; 74160; Q9967; A4216

== ENCOUNTER → 2019-08-28 13:14 | Outpatient (CLI) | payer BC, SELFPAY ==
[2019-05-27 13:36] VITALS: BMI 31.4
[2019-08-05 09:54] VITALS: BMI 30.4
[2019-08-06 14:00] VITALS: BMI 30.4
--- NOTE | 2019-08-28 13:15 | MRI_ITS ---
STUDY: MRI BRAIN WITH AND WITHOUT CONTRAST REASON FOR EXAM: Female, 49 years old. SMALL CELL LUNG CA, METS TECHNIQUE: Standardized multiplanar fat and water weighted pulse sequences were obtained. IV 15cc dotarem was administered for the contrast portion of the examination. COMPARISON: None. FINDINGS: Normal size of the ventricles and extra-axial spaces for the patient''s age. Normal white matter tracts of the supratentorial brain. There is no evidence for recent intracranial ischemia or other cause of cytotoxic edema on diffusion weighted imaging (DWI). Normal bilateral basal ganglia. Normal thalami. There is no extra-axial fluid accumulation. Normal flow voids within the major intracranial circulation suggesting patency by spin echo criteria. Normal venous enhancement. There is no enhancing intra-axial or extra-axial abnormality. There is enlargement of the sella turcica with increased CSF within the sella and flattening of the pituitary gland consistent with an empty sellar syndrome. Normal infundibular stalk, hypothalamus, and optic chiasm. Normal tectal plate and pineal gland. Normal midbrain, giacomo and medulla. Normal cerebellum. Normal basal cisterns. Normal bilateral temporal bones. Normal bilateral internal auditory canals. No demonstrated orbital abnormality, within the constraints of a routine brain study. Normal visualized paranasal sinuses. Normal calvarium and skull base. Normal visualized soft tissue structures. Normal visualized upper cervical spine. MRI/Brain W/WO Contrast IMPRESSION: No MR evidence metastatic disease. Electronically Signed: Rafita Rodgers MD at 16:20 EDT Tel , Service support ,
[2019-08-28] MEDS: 0.9% Saline Lock 10 ML Syringe IV (14:45)
== END ==
PROVIDERS: PCP Family Medicine; Referring Provider Student in an Organized Health Care Education/Training Program; Visit Provider Student in an Organized Health Care Education/Training Program
DX: C34.90 Malignant neoplasm of unspecified part of unspecified bronchus or lung (principal)
CPT/HCPCS: 70553; A9575; A4216

== ENCOUNTER → 2019-09-11 12:04 | Outpatient (CLI) | payer BC, SELFPAY ==
[2019-05-27 13:36] VITALS: BMI 31.4
[2019-09-02 14:08] VITALS: BMI 30.4
--- NOTE | 2019-09-11 12:05 | BI_ITS ---
MAMMOGRAPHY - BILATERAL SCREENING REASON FOR EXAM: Female, 49 years old. Routine annual screening examination. PERTINENT HISTORY: Non-contributory. TECHNIQUE: Digital bilateral breast kira (3D mammographic acquisition) in the CC and MLO projections. 2-D mediolateral oblique (MLO) and craniocaudad (CC) views of both breasts were obtained. CAD: Full Field Digital Mammography with Computer Added Detection was performed. COMPARISON: Comparison is made with prior outside examination dated 09/09/2015. FINDINGS: Breast Composition: The breasts are almost entirely fatty. There are no dominant masses or suspicious calcifications. Stable 2.3 mm well-defined nodule in the deep lateral aspect of the left breast. This may represent either a small cyst or small lymph node. No other significant abnormalities are identified. There has been no significant change since the prior study. BI/SCREEN MAMM (CAD) W/KIRA BILAT IMPRESSION: Stable bilateral screening mammogram. Yearly follow-up mammogram recommended. (A) ASSESSMENT CATEGORY: BIRADS Category 2: Benign. A letter regarding these results will be sent to the patient by the facility within 30 days. Approximately 10% of breast cancers are not detected by mammography. A normal mammogram should not delay biopsy of a clinically suspicious abnormality. [id number] Electronically Signed: Alok Dunlap, at 8:37 EDT , Service support ,
== END ==
PROVIDERS: PCP Family Medicine; Referring Provider Internal Medicine Hematology & Oncology; Visit Provider Internal Medicine Hematology & Oncology
DX: Z12.31 Encounter for screening mammogram for malignant neoplasm of breast (principal); C34.90 Malignant neoplasm of unspecified part of unspecified bronchus or lung
CPT/HCPCS: 77063; 77067

== ENCOUNTER → 2019-09-18 08:31 | Outpatient (CLI) | payer BC, SELFPAY ==
[2019-05-27 13:36] VITALS: BMI 31.4
[2019-07-03 05:59] VITALS: BMI 32.3
[2019-09-15 12:50] VITALS: BMI 30.7
--- NOTE | 2019-09-18 15:26 | PFTCOMP ---
COMPLETE PULMONARY FUNCTION TEST INTERPRETATION Brief HPI: Patient is a 49 year old female, currently under the care of myself, who presents to [facility] for complete pulmonary function tests secondary to diagnosis of small cell lung carcinoma. Respiratory therapist reports good effort and reproducible results. Interpretation: Forced expiration spirometry shows no large airways obstructive ventilatory defect with an FEV1 of 82% predicted. There is no significant bronchodilator response by strict ATS criteria. Spirograms are of good quality and plateau normally. The respiratory flow volume loop shows a normal pattern. Lung volumes by body plethysmography show a normal total lung capacity at 4.1 L, 90% predicted. All other lung volumes are within normal limits. Diffusion capacity by carbon monoxide is decreased at 53% predicted. The airway resistance is normal. Compared to previous pulmonary function tests from 05/01/2019, there is been a significant reduction in DLCO by 13%. Impression: Isolated reduction in diffusion capacity consistent with possible pulmonary vascular disorder
== END ==
PROVIDERS: PCP Family Medicine; Referring Provider Internal Medicine Critical Care Medicine; Visit Provider Internal Medicine Critical Care Medicine
DX: C34.90 Malignant neoplasm of unspecified part of unspecified bronchus or lung (principal)
CPT/HCPCS: 94060; 94726; 94729

== ENCOUNTER → 2019-12-29 10:23 | Outpatient (CLI) | payer BC, SELFPAY ==
[2019-05-27 13:36] VITALS: BMI 31.4
[2019-09-15 12:50] VITALS: BMI 30.7
[2019-11-25 14:52] VITALS: BMI 28.1
--- NOTE | 2019-12-29 10:31 | MRI_ITS ---
STUDY: MRI BRAIN WITH AND WITHOUT CONTRAST REASON FOR EXAM: Female, 49 years old. Small cell lung ca, s/p PCI, observe for brain mets, no neuro symptoms, preventive rad tx to brain TECHNIQUE: Standardized multiplanar fat and water weighted pulse sequences were obtained. IV Dotarem 15ml was administered for the contrast portion of the examination. COMPARISON: MRI brain with and without contrast 08/28/2019. FINDINGS: No restricted diffusion to suspect acute or subacute ischemic infarct. Normal size of the ventricles and extra-axial spaces for the patient''s age. Multiple ill-defined T2 FLAIR hyperintensity foci in the white matter of both cerebral hemispheres. They are new since 08/28/2019. They did not enhance with contrast and no obvious mass effects. Normal bilateral basal ganglia. Normal thalami. There is no extra-axial fluid accumulation. Normal flow voids within the major intracranial circulation suggesting patency by spin echo criteria. Normal venous enhancement. There is no enhancing intra-axial or extra-axial abnormality. Normal sella turcica, pituitary gland, infundibular stalk, optic chiasm and hypothalamus. Normal tectal plate and pineal gland. Normal midbrain, giacomo and medulla. Normal cerebellum. Normal basal cisterns. Normal bilateral temporal bones. Normal bilateral internal auditory canals. No demonstrated orbital abnormality, within the constraints of a routine brain study. Normal visualized paranasal sinuses. Normal calvarium and skull base. Normal visualized soft tissue structures. Normal visualized upper cervical spine. MRI/Brain W/WO Contrast IMPRESSION: 1. No MRI evidence of any suspicious enhancing intracranial metastatic disease. 2. New abnormal nonenhancing T2 FLAIR hyperintensity foci in the white matter of both cerebral hemispheres without obvious mass effects. They may represent post radiation changes. 3. No other additional findings when compared to 08/28/2019. Electronically Signed: Chris Forrest MD at 16:16 EST , Service support ,
[2019-12-29] MEDS: 0.9% Saline Lock 10 ML Syringe IV (11:25)
[2019-12-29] MEDS: 0.9 % NaCl (Sterile) Posiflush 10 mL IV (11:25)
== END ==
PROVIDERS: PCP Family Medicine; Referring Provider Student in an Organized Health Care Education/Training Program; Visit Provider Student in an Organized Health Care Education/Training Program
DX: C34.90 Malignant neoplasm of unspecified part of unspecified bronchus or lung (principal)
CPT/HCPCS: 70553; A9575; A4216

== ENCOUNTER → 2020-04-05 10:23 | Outpatient (CLI) | payer BC, SELFPAY ==
[2019-05-27 13:36] VITALS: BMI 31.4
[2019-11-25 14:52] VITALS: BMI 28.1
[2020-03-09 09:04] VITALS: BMI 30.7
--- NOTE | 2020-04-05 10:24 | MRI_ITS ---
STUDY: MRI BRAIN WITH AND WITHOUT CONTRAST REASON FOR EXAM: Female, 49 years old. SCLC, EVALUATE FOR METS TECHNIQUE: Standardized multiplanar fat and water weighted pulse sequences were obtained. 15ml IV Dotarem was administered for the contrast portion of the examination. COMPARISON: None. FINDINGS: Normal size of the ventricles and extra-axial spaces for the patient''s age. Confluent hyperintensities the paravertebral white matter may represent microangiopathic gliosis from chronic hypertension metabolic disease, hypercoagulable state including antiphospholipid antibody syndrome, vasculitis, migraine headaches, demyelinating disease (versus multiple sclerosis), or Lyme disease. Similar findings are seen in the brainstem. There is no evidence for recent intracranial ischemia or other cause of cytotoxic edema on diffusion weighted imaging (DWI). Normal T2* images of the brain without demonstrated susceptibility artifact. There is no demonstrated hemosiderin stain. Normal bilateral basal ganglia. Normal thalami. There is no extra-axial fluid accumulation. Normal flow voids within the major intracranial circulation suggesting patency by spin echo criteria. Normal venous enhancement. There is no enhancing intra-axial or extra-axial abnormality. Normal sella turcica, pituitary gland, infundibular stalk, optic chiasm and hypothalamus. Normal tectal plate and pineal gland. Normal midbrain, giacomo and medulla. Normal cerebellum. Normal basal cisterns. Normal bilateral temporal bones. Normal bilateral internal auditory canals. No demonstrated orbital abnormality, within the constraints of a routine brain study. Normal visualized paranasal sinuses. Normal calvarium and skull base. Normal visualized soft tissue structures. Normal visualized upper cervical spine. MRI/Brain W/WO Contrast IMPRESSION: 1. No MR evidence metastatic disease. 2. Confluent hyperintensities the paravertebral white matter may represent microangiopathic gliosis from chronic hypertension metabolic disease, hypercoagulable state including antiphospholipid antibody syndrome, vasculitis, migraine headaches, demyelinating disease (versus multiple sclerosis), or Lyme disease. Similar findings are seen in the brainstem. Electronically Signed: Rafita Rodgers MD at 12:14 EST Tel , Service support ,
[2020-04-05] MEDS: 0.9% Saline Lock 10 ML Syringe IV (11:20)
== END ==
PROVIDERS: PCP Family Medicine; Referring Provider Student in an Organized Health Care Education/Training Program; Visit Provider Student in an Organized Health Care Education/Training Program
DX: C34.90 Malignant neoplasm of unspecified part of unspecified bronchus or lung (principal)
CPT/HCPCS: 70553; A9575; A4216

== ENCOUNTER → 2020-05-19 15:23 | Outpatient (CLI) | payer BC, SELFPAY ==
[2019-05-27 13:36] VITALS: BMI 31.4
[2020-02-26 13:02] VITALS: BMI 28.4
[2020-03-09 09:04] VITALS: BMI 30.7
--- NOTE | 2020-05-19 15:26 | CT_ITS ---
STUDY: CT CHEST WITH CONTRAST REASON FOR EXAM: Female, 49 years old. SMALL CELL LUNG CANCER RESPONSE TO TREATMENT RADIATION DOSAGE (If Supplied By Facility): CTDIvol = ( ) mGy, DLP = ( ) mGycm TECHNIQUE: Transaxial imaging was performed following intravenous administration of IV 100mL Isovue-300. Multiplanar coronal and sagittal images were reformatted. Individualized dose optimization techniques were used for this CT. COMPARISON: 08/26/2019 FINDINGS: Stable appearance of a right subclavian port, tip is in the distal SVC. The previously described 2.1 x 1.7 cm pleural-based mass in the right middle lobe is no longer identified. However, current CT shows 2 separate noncalcified low-density suspicious nodules not seen on previous study. The more cranial abuts the superior mediastinum and measures 2.4 x 1.3 cm on axial image 48. The more caudal abuts the right pericardium on axial image 66 and measures 2.4 x 1.6 cm. These are both suspicious for metastasis. Additionally, there is new suspicious airspace opacification in the posterior segment of the right upper lobe, in the medial lobe and there our a couple of noncalcified nodules noted also in the right middle lobe. The noncalcified nodules are concerning for metastasis, the opacifications are suspicious for infiltrate or atelectasis, the middle lobe opacifications are likely due to post obstruction. Soft tissue windows show normal-appearing thyroid gland. No suspicious axillary adenopathy. There is a new suspicious pretracheal lymph node on axial image 42 measuring 1.2 cm in short axis dimension. There is perihilar, peribronchial thickening suggesting chronic bronchitis but there is no perihilar adenopathy there are enlarged subcarinal lymph nodes that are impinging upon the left main stem bronchus measuring 1.5 x 2.6 cm. No pleural or pericardial effusions. There are calcified coronary vessels. Normal enhanced pulmonary arteries. Normal aorta arch and descending thoracic aorta. There are multi-level degenerative changes of the thoracic spine. There is no demonstrated abnormality of the visualized upper abdomen. CT/Chest WITH Contrast IMPRESSION: Previously noted pleural-based mass in the right middle lobe measuring 2.1 x 1.7 cm no longer identified. However, there are 2 new suspicious noncalcified low-density nodules in the medial aspect of the right upper lobe, in the right suprahilar region and along the right pericardial surface in the right middle lobe. Both measure approximately 2.4 x 1.5 cm. Both are suspicious for new primaries or metastasis. New suspicious pretracheal and subcarinal adenopathy, the subcarinal adenopathies impinging upon the posterior left mainstem bronchus these are concerning for metastasis. Likely postobstructive atelectasis or infiltrate in the right middle lobe Opacification in the posterior right upper lobe likely infiltrate or pneumonitis Calcified coronary vessels No pleural or pericardial effusions Degenerative bony changes Electronically Signed: Kilo Villa MD at 12:38 EDT , Service support ,
--- NOTE | 2020-05-19 15:26 | CT_ITS ---
STUDY: CT ABDOMEN WITH CONTRAST REASON FOR EXAM: Female, 49 years old. SMALL CELL LUNG CANCER RESPONSE TO TREATMENT RADIATION DOSAGE (If Supplied By Facility): CTDIvol = ( 15.52 ) mGy, DLP = ( 492.04 ) mGycm TECHNIQUE: Transaxial images were obtained post I.V. administration of IV 100mL Isovue-300, and without oral contrast. Sagittal and coronal images were reconstructed. Individualized dose optimization techniques were used for this CT. COMPARISON: 08/26/2019 FINDINGS: Previously noted soft tissue density in the right middle lobe, abutting the right pleural surface is essentially unchanged in size from the previous study. It again measures approximately 2.1 x 1.7 cm. There is associated postobstructive atelectasis or scarring adjacent to the lesion likely from previous treatment. No new suspicious mass or nodule in either lung base. No organized infiltrate. Liver itself is unremarkable. No discrete lesion noted. There is a slight increase in intrahepatic biliary dilatation since the previous study. This is despite the presence of the gallbladder. The gallbladder shows wall thickening and pericholecystic fluid suggesting cholecystitis. No extrahepatic biliary dilatation is noted. Normal spleen. Normal pancreas. Normal bilateral adrenal glands. Normal right kidney. Normal left kidney. Normal visualized stomach. Normal small intestine. Retained stool noted throughout the colon. There is non-visualization of the appendix. Normal abdominal aorta. Normal inferior vena cava. Normal retroperitoneum. Normal abdominal wall. Normal osseous structures. CT/Abdomen WITH IV Contrast IMPRESSION: Stable appearance of a soft tissue density abutting the right pleural surface in the right middle lobe. It again measures approximately 2.1 x 1.7 cm. There is also no change in the associated opacifications around this lesion, likely sequela from previous therapy. No new suspicious noncalcified mass or nodule in either lung base. Gallbladder wall thickening with pericholecystic fluid and intrahepatic biliary dilatation not seen on the previous study. Findings concerning for cholecystitis. Surgical consultation recommended No free intraperitoneal fluid, air, or suspicious adenopathy Electronically Signed: Kilo Villa MD at 11:56 EDT , Service support ,
[2020-05-19 15:41] LABS: CREATININE FINGERSTICK 1.2 mg/dL (0.55-1.02)
[2020-05-19] MEDS: 0.9% Saline Lock 10 ML Syringe IV (15:45)
== END ==
LOC: CT 15:25
PROVIDERS: PCP Family Medicine; Referring Provider Internal Medicine Hematology & Oncology; Visit Provider Internal Medicine Hematology & Oncology
DX: C34.90 Malignant neoplasm of unspecified part of unspecified bronchus or lung (principal); C77.9 Secondary and unspecified malignant neoplasm of lymph node, unspecified
CPT/HCPCS: 71260; 74160; Q9967; A4216

== ENCOUNTER 2020-05-27 11:12 | Outpatient (RCR) | payer BC, SELFPAY ==
[2019-05-27 13:36] VITALS: BMI 31.4
[2020-05-27] MEDS: COVID-19 VACC, MRNA(PFIZER)/PF 30 MCG/0.3 ML SYRINGE IM (12:35)
[2020-05-27 14:26] VITALS: BMI 29.9
[2020-06-17] MEDS: COVID-19 VACC, MRNA(PFIZER)/PF 30 MCG/0.3 ML SYRINGE IM (15:09)
== END 2020-07-20 23:59 ==
LOC: IMMUN 11:12
PROVIDERS: PCP Family Medicine; Referring Provider Family Medicine; Visit Provider Family Medicine
DX: Z23 Encounter for immunization (principal)
CPT/HCPCS: 0001A; 0002A; 91300

== ENCOUNTER → 2020-06-08 10:14 | Outpatient (CLI) | payer BC, SELFPAY ==
[2019-05-27 13:36] VITALS: BMI 31.4
[2020-05-27 14:26] VITALS: BMI 29.9
--- NOTE | 2020-06-08 10:22 | MRI_ITS ---
STUDY: MRI BRAIN WITH AND WITHOUT CONTRAST REASON FOR EXAM: Female, 49 years old. small cell lung cancer, s/p PCI TECHNIQUE: Standardized multiplanar fat and water weighted pulse sequences were obtained. IV dotarem 15ml was administered for the contrast portion of the examination. COMPARISON: 04/05/2020 and 12/29/2019 FINDINGS: Normal size of the ventricles and extra-axial spaces for the patient''s age. There are increased periventricular and brainstem confluent white matter hyperintensities, consistent with postradiation leukoencephalopathy. Normal bilateral basal ganglia. Normal thalami. There is no extra-axial fluid accumulation. Normal flow voids within the major intracranial circulation suggesting patency by spin echo criteria. Normal venous enhancement. There is no enhancing intra-axial or extra-axial abnormality. Normal sella turcica, pituitary gland, infundibular stalk, optic chiasm and hypothalamus. Normal tectal plate and pineal gland. MRI/Brain W/WO Contrast IMPRESSION: No intracranial metastatic disease. Increased white matter hyperintensity, consistent with whole brain postradiation leukoencephalopathy. Electronically Signed: Helen Ruiz MD at 9:26 EDT Tel , Service support ,
== END ==
LOC: MRI 10:17
PROVIDERS: PCP Family Medicine; Referring Provider Student in an Organized Health Care Education/Training Program; Visit Provider Student in an Organized Health Care Education/Training Program
DX: C34.90 Malignant neoplasm of unspecified part of unspecified bronchus or lung (principal)
CPT/HCPCS: 70553; A9575; A4216

== ENCOUNTER → 2020-06-22 07:58 | Outpatient (CLI) | payer BC, SELFPAY ==
[2019-05-27 13:36] VITALS: BMI 31.4
[2020-06-14 15:08] VITALS: BMI 30.2
[2020-06-22] VITALS (13 sets, daily range): BP systolic 97–119; BP diastolic 48–77; PULSE 78–88; RESP 12–20; TEMP 36.6; O2SAT 94–99; BMI 30.2
--- NOTE | 2020-06-22 08:00 | CT_ITS ---
PROCEDURE: CT GUIDED CORE NEEDLE BIOPSY OF A right perihilar LUNG LESION INDICATION: Female, 50 years old. RIGHT LUNG/LN MASS PHYSICIAN: Dr. NANCY Saldivar CONSENT: Written informed consent was obtained having explained the risks, benefits and alternatives in detail with the patient who accepted the risks and agreed to proceed. Laboratory review and clinical assessment was performed. CONSCIOUS SEDATION PROTOCOL: The Drugs used were: Versed, 2 mg IV., and 100 mcg Fentanyl, IV. The sedation time was: 16 minutes. Conscious sedation was started at 9:08 AM and terminated at 934 The conscious sedation protocol was independently monitored. RADIATION DOSAGE (If Supplied By Facility): CTDIvol = ( 19.7 ) mGy, DLP = ( 181.7 ) mGycm Individualized dose optimization techniques were used for this CT. TECHNIQUE: The patient was placed in the supine position. A noncontrast CT was performed to localize the lesion in the right perihilar region . The skin surface was prepped and draped in a sterile fashion. 1% lidocaine was used for local anesthesia. Using CT guidance, a 20-gauge coaxial biopsy device was advanced to the periphery of the lesion. A total of 4 core specimens were obtained. The specimens were placed in a formalin solution. A post procedure CT demonstrated no adverse sequelae or pneumothorax. The patient tolerated the procedure well without adverse event. A negative biopsy does not exclude malignancy. Further imaging or clinical followup based on patient condition and degree of clinical suspicion for malignancy. Suggest rebiopsy, if biopsy results do not match with clinical scenario. CT/Biopsy/Inj or Needle Placement IMPRESSION: 1. CT directed core needle biopsy of the right perihilar mass using CT image guidance with image documentation as described. Pathology results are pending. 2. Conscious Sedation protocol utilized with independent monitoring. Electronically Signed: Alok Dunlap MD at 10:31 EDT , Service support ,
[2020-06-22 08:26] LABS: Absolute Neutrophil Count 3.7 X10^3/uL (2.0-7.7); Basophil# 0.01 X10^3/uL; Basophil% 0.2 % (0-1); Eosinophils% 3.9 % (0-5); Hemoglobin 13.3 g/dL (12.0-15.0); Lymphocyte % 11.7 % (19-41); Mean Corpuscular Volume 91.6 fL (81-99); Mean Platelet Vol. 8.4 fl (6.2-12.0); Monocyte# 0.58 X10^3/uL; Monocyte% 11.4 % (0-10); NRBC Flagged by Analyzer 0 % (0-5); Neutrophil % 72.4 % (47-70); POSITIVE DIFFERENTIAL YES; Platelet Count 202 K/mm3 (150-450); RBC Distribution Width CV 12.3 % (11.6-14.6); RBC Distribution Width SD 41.3 fl (35.1-43.9); Red Blood Count 4.15 M/mm3 (4.2-5.4); White Blood Count 5.1 K/mm3 (4.4-11.0)
[2020-06-22 08:32] LABS: Differential Indicated SCAN CRITERIA MET
[2020-06-22 08:36] LABS: Prothrombin Time (Protime)PT. 12.7 SECONDS (11.7-14.9)
[2020-06-22 08:37] LABS: Partial Thromboplast Time 56.6 Seconds (24.1-36.2)
[2020-06-22] MEDS: Midazolam 2 MG/2 ML Syringe IV (09:08)
[2020-06-22] MEDS: fentaNYL 100 MCG/2 ML Ampul IV ×2 (09:12→09:46)
--- NOTE | 2020-06-22 09:30 | ASPIGT_PTH ---
PATIENT: CHRISTY LACKEY LOC: [place] U#:[id number] AGE/SX: 54/F ROOM: RE06/22/[address]: Dr. Jermaine Oleary MD : 1970 BED: DIS: SPEC #: [id number] RECD: 06/22/20 09:58 STATUS: RICKI RETaylor #: [id number] ARMINDA: 06/22/20 09:[address]: Jermaine Oleary DEPT: SURGICAL PATHOLOGY RECD BY: Luzmaria Tate ENTERED: 06/22/20 09:59 SP TYPE: ASP RAD OTHR DR: Dr. Elke Gonzalez DO Tissues: Lung, NOS Procedures: FNA Specimen Adequacy Special Stain Group II Surgery Specimen Level IV Imprint (control) HEADER OPERATION: Right parahilar mass, CT-guided core biopsy PRE-OP DIAGNOSIS: Right lung mass TISSUE SUBMITTED: Right parahilar mass, CT-guided core biopsy 20-gauge core x4 MICROSCOPIC DIAGNOSIS Right parahilar mass, CT-guided core biopsy: Small cell carcinoma. See comment. ELLIS:nadine 06/23/2020 COMMENT The specimen is evaluated at the time of biopsy by Dr. Ozuna. Immediate Evaluation = Positive for malignant cells, small cell carcinoma. Immunohistochemistry ([id number]) supports the above diagnosis. Please make reference to previous specimen ([id number]) EBUS, TBNA, site 7 with diagnosis of ?positive for malignant cells consistent with small cell carcinoma.? MICROSCOPIC DESCRIPTION Slides are reviewed. GROSS DESCRIPTION Received in fixative is one container labeled with the patient's name and designated right lung biopsy. The specimen consists of multiple irregular fragments of hayes soft tissue that in aggregate measure 1.5 x 0.1 x 0.1 cm. The specimen is totally submitted in one cassette. Two touch imprints are prepared at the time of core biopsy. / ELLIS:nadine 06/22/20 TC:0 CPT: 44742, 83494
--- NOTE | 2020-06-22 09:30 | IMM_PTH ---
PATIENT: CHRISTY LACKEY LOC: CT U#:[id number] AGE/SX: 54/F ROOM: RE06/22/[address]: Dr. Jermaine Oleary MD : 1970 BED: DIS: SPEC #: [id number] RECD: 06/22/20 13:33 STATUS: RICKI REQ #: [id number] ARMINDA: 06/22/20 09:[address]: Jermaine Oleary DEPT: IMMUNOHISTOCHEMISTRY RECD BY: Rachel Humphreys ENTERED: 06/22/20 13:35 SP TYPE: IMMUNO OTHR DR: Dr. Elke Gonzalez DO Tissues: Right lung, NOS Procedures: Synapto (add) CD45 (add) CD56 (add) CHROMO (add) CK20 (add) CK7 (add) CK8 (add) TTF1 (add) Pankeratin (initial) PHYSICIAN & INSTITUTION [place] [address] SPECIMEN INFORMATION: Tissue Source: Right lung, CT-guided biopsy Clinical Info: Right lung mass Specimen Number: [id number] CPT code: 10949, 52394 x8 METHODOLOGY: Deparaffinized sections of prefer/formalin-fixed tissue or PAP/DQ stained slides are incubated with monoclonal/polyclonal antibodies/oligonucleotide probes. Localization is made via biotin free immunoperoxidase method. Appropriate controls are performed and reacted as expected. Results on target cell population are indicated in the following table: RESULTS: ANTIBODY / CLONE RESULT AE1-3 (AE1/AE3/PCK26) positive CK7 (OV-TL12/30) positive CK8 (06tvwpU54) positive, weak, rare cells CK20 (KS20.8) negative CD45 (RP2/18) negative CD56 (123C3.D5) positive Chromo (LK2H10) positive Synapto (polyclonal) positive TTF-1 (8G7G3/1) positive These tests were developed and their performance characteristics determined by [facility]. They may not have been cleared or approved by the U.S. Food and Drug Administration. The FDA has determined that such clearance or approval is not necessary. The above immunohistochemical/dualISH markers are ordered and reviewed by the Pathologist. INTERPRETATION: Right lung, CT-guided biopsy: Small cell carcinoma. ELLIS:nadine 06/23/2020
--- NOTE | 2020-06-22 09:35 | RAD_ITS ---
STUDY: X-RAY CHEST REASON FOR EXAM: Female, 50 years old. Pneumothorax -- immediately post lung biopsy TECHNIQUE: AP inspiration and expiration views. COMPARISON: Comparison is made with prior study dated 04/03/2019. FINDINGS: The patient is status post right lung biopsy. No evidence of pneumothorax on the immediate post right lung biopsy radiographs. RAD/Chest Insp/Exp 2 View IMPRESSION: There is no evidence of pneumothorax on the immediate post right lung biopsy radiographs. Electronically Signed: Alok Dunlap MD at 9:57 EDT , Service support ,
--- NOTE | 2020-06-22 11:15 | RAD_ITS ---
STUDY: X-RAY CHEST REASON FOR EXAM: Female, 50 years old. Pneumothorax -- 2 hours post lung biopsy TECHNIQUE: AP inspiration and expiration views. COMPARISON: Comparison is made with prior examination done earlier in the day. FINDINGS: Two-hour post right lung biopsy radiographs. No evidence of pneumothorax. The patient is asymptomatic. RAD/Chest Insp/Exp 2 View IMPRESSION: No evidence of pneumothorax on the lower delayed postright lung biopsy examination. Electronically Signed: Alok Dunlap MD at 11:56 EDT , Service support ,
== END ==
LOC: CT 07:58
PROVIDERS: PCP Family Medicine; Referring Provider Internal Medicine Hematology & Oncology; Visit Provider Internal Medicine Hematology & Oncology
DX: C34.01 Malignant neoplasm of right main bronchus (principal); C77.9 Secondary and unspecified malignant neoplasm of lymph node, unspecified
CPT/HCPCS: 32408; 71046; 77012; 85025; 85610; 85730; 88172; 88305; 88313; 88341; 88342; 99156; J7040; A4216

== ENCOUNTER → 2020-09-07 08:09 | Outpatient (CLI) | payer BC, SELFPAY ==
[2020-07-06 08:28] VITALS: BMI 31.4
[2020-08-24 10:07] VITALS: BMI 30.6
--- NOTE | 2020-09-07 08:10 | CT_ITS ---
STUDY: CT CHEST T ABDOMEN WITH CONTRAST REASON FOR EXAM: Female, 50 years old. ASSESS TREATMENT RESPONSE. Patient has a history of small cell lung cancer. RADIATION DOSAGE (If Supplied By Facility): CTDIvol = ( 13.60 ) mGy, DLP = ( 1159.73 ) mGycm TECHNIQUE: Transaxial imaging was performed following intravenous administration of IV 100mL Isovue-300. Individualized dose optimization techniques were used for this CT. COMPARISON: Comparison is made with prior CT scan of the chest dated 05/19/2020. FINDINGS: CHEST A right-sided phil catheter seen with the tip in the superior vena cava. Small benign appearing bilateral axillary lymph nodes. The previously seen right lobe masses are not seen this time. There now is evidence of bronchiectasis and scarring involving the medial aspect of the right upper lobe as well as right middle lobe and the superior segment of the right lower lobe suggestive of post radiation fibrosis/pneumonitis. There is minimal thickening of the right major fissure. Minimal soft tissue density is seen in the lateral aspect of the right upper lobe. This abuts the pleural surface. Normal heart and pericardium. There is fullness of the subcarinal region of the mediastinum suggestive of mild adenopathy. Normal hilar regions. Normal unenhanced pulmonary arteries. Normal aorta arch and descending thoracic aorta. Normal osseous structures. Fatty infiltration of the liver. ABDOMEN Fatty infiltration of the liver. Minimal thickening of the gallbladder wall. There are multiple benign calcified granulomata of the spleen. Normal pancreas. Normal bilateral adrenal glands. Normal right kidney. Normal left kidney. Normal visualized stomach. Normal small intestine. Normal colon. The appendix is visualized and appears normal. There is scattered atherosclerotic calcification of the abdominal aorta, without a demonstrated aneurysm. Normal inferior vena cava. Normal retroperitoneum. Normal abdominal wall. There are diffuse degenerative changes of the visualized lumbar spine. CT/CT Chest AND Abd W/ Contrast IMPRESSION: Interval improvement of the previously seen masses in the right lung with evidence of scarring and bronchiectasis as described in keeping with post radiation fibrosis and/or pneumonitis. Interval decrease in size of the mediastinal lymphadenopathy. Fatty attrition of the liver. Mild degree of gallbladder wall thickening. Electronically Signed: Alok Dunlap MD at 10:36 EDT , Service support ,
[2020-09-07] MEDS: 0.9% Saline Lock 10 ML Syringe IV (08:36)
== END ==
PROVIDERS: PCP Family Medicine; Referring Provider Internal Medicine Hematology & Oncology; Visit Provider Internal Medicine Hematology & Oncology
DX: C34.90 Malignant neoplasm of unspecified part of unspecified bronchus or lung (principal); C77.9 Secondary and unspecified malignant neoplasm of lymph node, unspecified
CPT/HCPCS: 71260; 74160; Q9967; A4216

== ENCOUNTER → 2020-11-16 13:19 | Outpatient (CLI) | payer OTHER, SELFPAY ==
[2020-07-06 08:28] VITALS: BMI 31.4
--- NOTE | 2020-11-16 13:23 | CT_ITS ---
EXAM: CT CHEST AND ABDOMEN WITH INTRAVENOUS CONTRAST CLINICAL INDICATION: Small cell lung cancer of the right lung, follow-up TECHNIQUE: Helically acquired images were obtained of the chest and abdomen with intravenous contrast. This CT exam was performed using one or more of the following dose reduction techniques: automated exposure control, adjustment of the mA and/or kV according to patient size, and/or use of iterative reconstruction technique. This report was created using [employer] report generation technology. CONTRAST: IV 100mL Isovue-370 COMPARISON: None. FINDINGS: CHEST: LUNGS AND PLEURAL SPACES: Peribronchial and perihilar reticular opacity involves the right upper lobe, right middle lobe and right lower lobe with similar distribution since the prior study. No discrete mass. No pleural effusion or thickening. No pneumothorax. HEART: Unremarkable. Heart size is normal. No pericardial effusion. MEDIASTINUM: Subcarinal lymph node has a short axis of 8 mm (previously measured 13 mm). No new mediastinal or hilar adenopathy. Esophagus is unremarkable. No hiatal hernia. THYROID: Unremarkable. No thyroid lesions. ABDOMEN: LIVER: Unremarkable. Homogeneous. No focal mass. GALLBLADDER AND BILE DUCTS: Unremarkable. No calcified gallstones. No gallbladder distention or wall edema. No intra- or extrahepatic biliary ductal dilation. PANCREAS: Unremarkable. No focal cystic or solid mass. SPLEEN: Granulomatous calcifications of the spleen. ADRENALS: Unremarkable. No nodules. KIDNEYS AND URETERS: Unremarkable. Normal renal size and position. No hydronephrosis. STOMACH AND BOWEL: Unremarkable. No stomach or bowel distention. No focal inflammatory change. INTRAPERITONEAL SPACE: Unremarkable. No ascites or other fluid collection. No free air. CHEST and ABDOMEN: BONES/JOINTS: Unremarkable. No suspicious lytic or blastic abnormality. SOFT TISSUES: Unremarkable. No discrete abdominal wall hernia. VASCULATURE: Atherosclerosis of the abdominal aorta. Aorta is non-dilated. No aortic dissection. No obvious central pulmonary embolism although this study was not performed with the pulmonary embolism protocol. LYMPH NODES: See above. TUBES, LINES AND DEVICES: Right jugular chest port with tip of the catheter extending to the lower SVC. CT/CT Chest AND Abd W/ Contrast IMPRESSION: Since 09/07/2020, stable exam. No pulmonary nodule/mass. Chronic changes of the right perihilar region compatible with post radiation sequela. Decreased subcarinal lymph node. Electronically Signed: Augustine Venegas MD ([place]) at 14:13 EDT , Service support ,
[2020-11-16] MEDS: 0.9% Saline Lock 10 ML Syringe IV (13:28)
== END ==
PROVIDERS: PCP Family Medicine; Referring Provider Nurse Practitioner Family; Visit Provider Nurse Practitioner Family
DX: C34.90 Malignant neoplasm of unspecified part of unspecified bronchus or lung (principal)
CPT/HCPCS: 71260; 74160; Q9967; A4216

== ENCOUNTER → 2021-01-19 14:03 | Outpatient (CLI) | payer OTHER, SELFPAY ==
[2020-07-06 08:28] VITALS: BMI 31.4
--- NOTE | 2021-01-19 14:05 | BI_ITS ---
MAMMOGRAPHY - BILATERAL SCREENING REASON FOR EXAM: Female, 50 years old. Routine annual screening examination. PERTINENT HISTORY: Non-contributory. History of lung cancer and melanoma. TECHNIQUE: Digital bilateral breast kira (3D mammographic acquisition) in the CC and MLO projections. 2-D mediolateral oblique (MLO) and craniocaudad (CC) views of both breasts were obtained. CAD: Full Field Digital Mammography with Computer Added Detection was performed. COMPARISON: Comparison is made with prior examination dated 09/11/2019. FINDINGS: Breast Composition: The breasts are almost entirely fatty. There are no dominant masses or suspicious calcifications. No other significant abnormalities are identified. There has been no significant change since the prior study. BI/SCRN MAMM (CAD)W/KIRA BILAT IMPRESSION: Stable bilateral screening mammogram. Yearly follow-up mammogram recommended. (A) ASSESSMENT CATEGORY: BIRADS Category 1: Negative. A letter regarding these results will be sent to the patient by the facility within 30 days. Approximately 10% of breast cancers are not detected by mammography. A normal mammogram should not delay biopsy of a clinically suspicious abnormality. [id number] Electronically Signed: Alok Dunlap MD at 15:20 EST , Service support ,
[2021-01-24 23:16] LABS: HPV APTIMA, High Risk Negative (Negative)
== END ==
PROVIDERS: Nurse Practitioner Women's Health; PCP Family Medicine; Referring Provider Internal Medicine Hematology & Oncology; Visit Provider Internal Medicine Hematology & Oncology
DX: Z12.31 Encounter for screening mammogram for malignant neoplasm of breast (principal); N76.0 Acute vaginitis; Z85.118 Personal history of other malignant neoplasm of bronchus and lung; Z85.820 Personal history of malignant melanoma of skin
CPT/HCPCS: 77063; 77067; 87070; 87205; 87624; 88175; G0145

== ENCOUNTER → 2021-02-09 08:28 | Outpatient (CLI) | payer OTHER, MEDICAID, SELFPAY ==
[2020-07-06 08:28] VITALS: BMI 31.4
--- NOTE | 2021-02-09 08:32 | CT_ITS ---
EXAM: CT CHEST AND ABDOMEN WITH INTRAVENOUS CONTRAST CLINICAL INDICATION: SCLC RESPONSE TO TREATMENT Technologist Notes LUNG CANCER WITH CHEMO/RADIATION/IMMUNOTHERAPY TECHNIQUE: Helically acquired images were obtained of the chest and abdomen with intravenous contrast. This CT exam was performed using one or more of the following dose reduction techniques: automated exposure control, adjustment of the mA and/or kV according to patient size, and/or use of iterative reconstruction technique. This report was created using [employer] report generation technology. CONTRAST: IV 100mL Isovue-300 COMPARISON: 11/16/2020 FINDINGS: CHEST: LUNGS AND PLEURAL SPACES: There are scattered blebs and bullae. This can be seen in pulmonary emphysema. Left upper lobe calcified granuloma. No mass. No pleural effusion or thickening. No pneumothorax. HEART: Unremarkable. Heart size is normal. No pericardial effusion. No significant coronary artery calcifications. MEDIASTINUM: Unremarkable. No mediastinal or hilar adenopathy. Esophagus is unremarkable. No hiatal hernia. THYROID: Unremarkable. No thyroid lesions. ABDOMEN: LIVER: Unremarkable. Homogeneous. No focal mass. GALLBLADDER AND BILE DUCTS: Unremarkable. No calcified gallstones. No gallbladder distention or wall edema. No intra- or extrahepatic biliary ductal dilation. PANCREAS: Unremarkable. No focal cystic or solid mass. SPLEEN: Calcified splenic granulomas. ADRENALS: Unremarkable. No nodules. KIDNEYS AND URETERS: Unremarkable. Normal renal size and position. No hydronephrosis. STOMACH AND BOWEL: There is an umbilical hernia containing fat. There is no bowel involvement. There is no incarceration. There is no findings suggesting that this is causing a bowel obstruction. . No focal inflammatory change. APPENDIX: The appendix is visualized and is normal. INTRAPERITONEAL SPACE: Unremarkable. No ascites or other fluid collection. No free air. CHEST and ABDOMEN: BONES/JOINTS: Unremarkable. No suspicious lytic or blastic abnormality. SOFT TISSUES: Right perihilar masslike infiltrate extending to the right upper lobe right middle lobe and right lower lobe. Scattered subcentimeter nodules in the right upper lobe. The nodules are unchanged. However, masslike right perihilar area is increased in size. Masslike infiltrate extends into the mediastinum and right hilar soft tissue. There is diffuse soft tissue thickening around the left proximal bronchus. Recurrent neoplasm is of concern. VASCULATURE: There are calcifications of the abdominal aorta. This is consistent for atherosclerotic disease. There is no abdominal aortic aneurysm. No aortic dissection. No obvious central pulmonary embolism although this study was not performed with the pulmonary embolism protocol. LYMPH NODES: Unremarkable. No enlarged lymph nodes. TUBES, LINES AND DEVICES: There is a right Port-A-Cath and/or mediport in place. The tip is in the superior vena cava. CT/CT Chest AND Abd W/ Contrast IMPRESSION: Right perihilar masslike infiltrate extending to the right upper lobe right middle lobe and right lower lobe. Scattered subcentimeter nodules in the right upper lobe. The nodules are unchanged. However, masslike right perihilar area is increased in size. Masslike infiltrate extends into the mediastinum and right hilar soft tissue. There is diffuse soft tissue thickening around the left proximal bronchus. Recurrent neoplasm is of concern. Electronically Signed: Austin Meehan MD at 21:35 EST , Service support ,
[2021-02-09] MEDS: 0.9% Saline Lock 10 ML Syringe IV (08:50)
== END ==
PROVIDERS: PCP Family Medicine; Visit Provider Internal Medicine Hematology & Oncology
DX: C34.90 Malignant neoplasm of unspecified part of unspecified bronchus or lung (principal); Z92.21 Personal history of antineoplastic chemotherapy; Z92.3 Personal history of irradiation
CPT/HCPCS: 71260; 74160; Q9967; A4216

== ENCOUNTER 2021-05-09 07:48 | Outpatient (CLI) | payer OTHER, MEDICAID, SELFPAY ==
[2020-07-06 08:28] VITALS: BMI 31.4
--- NOTE | 2021-05-09 07:49 | MRI_ITS ---
ACR Level 3 findings have been noted. An addendum which confirms receipt of the report will follow. STUDY: MRI BRAIN WITH AND WITHOUT CONTRAST REASON FOR EXAM: Female, 50 years old. HEADACHES, H/O LUNG CA Additional clinical history: small cell lung cancer, s/p PCI TECHNIQUE: Standardized multiplanar fat and water weighted pulse sequences were obtained. IV 15 cc dotarem was administered for the contrast portion of the examination. COMPARISON: MRI of the brain dated JUNE 08, 2020. FINDINGS: 0.47 x 0.57 cm intensely enhancing nodule in the right parahippocampal region/anterior medial aspect of the right temporal lobe, which is a new finding since the prior MRI of the brain dated JUNE 08, 2020. This nodule demonstrates bright signal on the diffusion-weighted sequence but is not consistent with acute infarction. There is mild cerebral atrophy with widening of the extra-axial spaces and ventricular dilatation. There are multiple confluent white matter hyperintensities, distributed throughout the deep white matter tracts of the cerebral hemispheres, consistent with severe chronic white matter ischemic changes. There is no evidence for recent intracranial ischemia or other cause of cytotoxic edema on diffusion weighted imaging (DWI). Normal T2* images of the brain without demonstrated susceptibility artifact. There is no demonstrated hemosiderin stain. Normal bilateral basal ganglia. Normal thalami. There is no extra-axial fluid accumulation. Normal flow voids within the major intracranial circulation suggesting patency by spin echo criteria. Normal venous enhancement. Normal sella turcica, pituitary gland, infundibular stalk, optic chiasm and hypothalamus. Normal tectal plate and pineal gland. Normal midbrain, giacomo and medulla. Normal cerebellum. Normal basal cisterns. Normal bilateral temporal bones. Normal bilateral internal auditory canals. No demonstrated orbital abnormality, within the constraints of a routine brain study. Normal visualized paranasal sinuses. Normal calvarium and skull base. Normal visualized soft tissue structures. Normal visualized upper cervical spine. IMPRESSION: Interval development of a small metastatic nodule of the right temporal lobe * 0.47 x 0.57 cm intensely enhancing nodule in the right parahippocampal region/anterior medial aspect of the right temporal lobe, which is a new finding since the prior MRI of the brain dated JUNE 08, 2020. This nodule demonstrates bright signal on the diffusion-weighted sequence but is not consistent with acute infarction. * Severe chronic ischemic changes of the periventricular white matter Electronically Signed: Joe العلي MD at 10:48 EDT , MRI/Brain W/WO Contrast
[2021-05-09] MEDS: 0.9% Saline Lock 10 ML Syringe IV (09:30)
== END 2021-05-09 23:59 | disposition home or self-care (01) ==
LOC: MRI 07:49
PROVIDERS: PCP Family Medicine; Referring Provider Internal Medicine Hematology & Oncology; Visit Provider Internal Medicine Hematology & Oncology
DX: R51.9 Headache, unspecified (principal); C79.31 Secondary malignant neoplasm of brain; C34.90 Malignant neoplasm of unspecified part of unspecified bronchus or lung
CPT/HCPCS: 70553; A9575; A4216

== ENCOUNTER 2021-05-12 07:55 | Outpatient (CLI) | payer OTHER, MEDICAID, SELFPAY ==
[2020-07-06 08:28] VITALS: BMI 31.4
--- NOTE | 2021-05-12 07:56 | CT_ITS ---
STUDY: CT CHEST T ABDOMEN WITH CONTRAST REASON FOR EXAM: Female, 50 years old. SCLC RESPONSE TO TREATMENT RADIATION DOSAGE (If Supplied By Facility): CTDIvol = ( 16.86 ) mGy, DLP = ( 1195.81 ) mGycm TECHNIQUE: Transaxial imaging was performed following intravenous administration of IV 100mL Isovue-300. Individualized dose optimization techniques were used for this CT. COMPARISON: Comparison is made with prior study dated 02/09/2021. FINDINGS: A right-sided portacatheter is seen with the tip in the superior vena cava. CHEST Hyperinflation. Emphysematous changes more prominent in the upper lobes with evidence of scarring in both lungs. There is evidence of volume loss in the upper medial aspect of the right upper lobe with evidence of bronchiectasis and radiation fibrosis and/or pneumonitis along the medial aspect of the right upper lobe as well as the right middle lobe and superior segment of the right lower lobe. Persistent enlargement of the subcarinal lymph node measuring 2 cm x 2.2 sinuses. This has decreased in size as compared to prior study. Has markedly decreased in size. There is no demonstrated pleural abnormality. Normal heart and pericardium. Normal unenhanced pulmonary arteries. Normal aorta arch and descending thoracic aorta. There are degenerative changes of the thoracic spine. ABDOMEN Normal liver. Normal gallbladder and extrahepatic biliary system. There are multiple benign calcified granulomata of the spleen. Normal pancreas. Normal bilateral adrenal glands. Normal right kidney. Normal left kidney. Normal visualized stomach. Normal small intestine. Normal colon. The appendix is visualized and appears normal. There is scattered atherosclerotic calcification of the abdominal aorta, without a demonstrated aneurysm. Normal inferior vena cava. Normal retroperitoneum. Normal abdominal wall. There are degenerative changes of the visualized lumbar spine. CT/CT Chest AND Abd W/ Contrast IMPRESSION: Interval decrease in size of the right parahilar soft tissue mass with evidence of the bronchiectasis and postradiation fibrosis/pneumonitis involving the medial aspect of the right upper lobe, right middle lobe and superior segment of the right lower lobe. Persistent subcarinal lymph node. Electronically Signed: Alok Dunlap MD at 12:36 EDT ,
[2021-05-12] MEDS: 0.9 % NaCl (Sterile) Posiflush 10 mL IV (08:25)
== END 2021-05-12 23:59 | disposition home or self-care (01) ==
PROVIDERS: PCP Family Medicine; Referring Provider Internal Medicine Hematology & Oncology; Visit Provider Internal Medicine Hematology & Oncology
DX: C34.90 Malignant neoplasm of unspecified part of unspecified bronchus or lung (principal)
CPT/HCPCS: 71260; 74160; Q9967; A4216

== ENCOUNTER 2021-05-24 12:39 | Outpatient (CLI) | payer OTHER, MEDICAID, SELFPAY ==
[2020-07-06 08:28] VITALS: BMI 31.4
[2021-05-24 13:06] VITALS: PULSE 110; PULSE 113; PULSE 116; PULSE 117; PULSE 119; PULSE 95; PULSE 96; O2SAT 88; O2SAT 89; O2SAT 91; O2SAT 92; O2SAT 93; O2SAT 95; O2SAT 97; O2SAT 98
--- NOTE | 2021-05-24 14:04 | PCM.PSN.6M ---
PSN 6 Minute Walk Test 6 Minute Walk Test 6 Minute Walk Test: 6 Minute Walk Test PSN:6-Minute Walk Test Start: 05/24/21 13:06 Freq: Status: Active Protocol: RESP.6MINW Document 05/24/21 13:06 FEDERICO (Rec: 05/24/21 13:11 FEDERICO [id number]) 6 Minute Walk Test Date Performed 05/24/21 Time Performed 12:45 Height 5 ft 1 in Weight: 77.111 kg Weight in Pounds 170.[address]: Cheryl Guerra NP Assistive device used: None Pre-test Oxygen Delivery Method Room Air Pulse Ox (%) 97 Pulse Rate (60-100 beats/min) 95 Dyspnea Melina Scale (0-10) 0.5 Exertion Melina Scale (6-20) 6 1st minute Oxygen Delivery Method Room Air Pulse Ox (%) 95 Pulse Rate (60-100 beats/min) 110 H 2nd minute Oxygen Delivery Method Room Air Pulse Ox (%) 93 Pulse Rate (60-100 beats/min) 113 H 3rd minute Oxygen Delivery Method Room Air Pulse Ox (%) 92 Pulse Rate (60-100 beats/min) 116 H 4th minute Oxygen Delivery Method Room Air Pulse Ox (%) 91 Pulse Rate (60-100 beats/min) 117 H 5th minute Oxygen Delivery Method Room Air Pulse Ox (%) 89 Pulse Rate (60-100 beats/min) 119 H 6th minute Oxygen Delivery Method Room Air Pulse Ox (%) 88 Pulse Rate (60-100 beats/min) 116 H Dyspnea Melina Scale (0-10) 4 Exertion Melina Scale (6-20) 14 Reported Symptoms Dizziness Post-test Oxygen Delivery Method Room Air Pulse Ox (%) 98 Pulse Rate (60-100 beats/min) 96 Full Laps Walked 10 Partial Lap, Number of Tiles Walked 20 Total Distance Walked (ft) 610 Interpretation Interpretation: The patient was noted to be 97% on room air at rest, but did desaturate as low as 88% in the 6-minute with exertion. The patient did have an element of reflexive tachycardia. In total, the patient traveled 610 feet over the course of 6 minutes with no assistive devices or breaks. These findings are consistent with a respiratory limitation exercise tolerance. Recommendations Recommendations: The patient requires no supplemental oxygen at rest, but technically does qualify for 2 L nasal cannula with exertion.
== END 2021-05-24 23:59 | disposition home or self-care (01) ==
LOC: PSN 12:39
PROVIDERS: PCP Family Medicine; Referring Provider Nurse Practitioner Family; Visit Provider Nurse Practitioner Family
DX: C34.90 Malignant neoplasm of unspecified part of unspecified bronchus or lung (principal); R09.02 Hypoxemia
CPT/HCPCS: 94618

== ENCOUNTER → 2021-08-02 | Outpatient (CLI) | payer OTHER, MEDICAID, SELFPAY ==
[2020-07-06 08:28] VITALS: BMI 31.4
--- NOTE | 2021-08-02 08:24 | CT_ITS ---
EXAM: CT CHEST AND ABDOMEN WITH INTRAVENOUS CONTRAST CLINICAL INDICATION: F/U LUNG CANCER TECHNIQUE: Helically acquired images were obtained of the chest and abdomen with intravenous contrast. This CT exam was performed using one or more of the following dose reduction techniques: automated exposure control, adjustment of the mA and/or kV according to patient size, and/or use of iterative reconstruction technique. This report was created using [employer] report generation technology. CONTRAST: IV 100mL Isovue-300 COMPARISON: May 12, 2021 FINDINGS: CHEST: LUNGS AND PLEURAL SPACES: Residual parenchymal density along the medial portion of the right lung consistent with postirradiation change. Persistent 3.2 cm right upper lobe lung density noted medially which may represent residual or recurrent neoplasm. More confluent airspace opacification within the left lower lobe consistent with pneumonia. The more diffuse pulmonary edema throughout both lungs appears improved. Trace left pleural effusion. No mass. HEART: Unremarkable. Heart size is normal. No pericardial effusion. No significant coronary artery calcifications. MEDIASTINUM: Unremarkable. No mediastinal or hilar adenopathy. Esophagus is unremarkable. No hiatal hernia. THYROID: Unremarkable. No thyroid lesions. ABDOMEN: LIVER: 9 mm hypodensity within the superior portion of hepatic segment 4A as well as a 6 mm hypodensity within hepatic segment 8 near the dome of the liver were not apparent on the prior exam and may represent liver metastases. GALLBLADDER AND BILE DUCTS: Unremarkable. No calcified gallstones. No gallbladder distention or wall edema. No intra- or extrahepatic biliary ductal dilation. PANCREAS: Unremarkable. No focal cystic or solid mass. SPLEEN: Unremarkable. Normal size without focal cystic or solid mass. ADRENALS: Unremarkable. No nodules. KIDNEYS AND URETERS: Unremarkable. Normal renal size and position. No hydronephrosis. STOMACH AND BOWEL: Moderate stool burden within the large bowel. No stomach or bowel distention. No focal inflammatory change. APPENDIX: Appendix is visualized and normal in appearance. INTRAPERITONEAL SPACE: Unremarkable. No ascites or other fluid collection. No free air. CHEST and ABDOMEN: BONES/JOINTS: Unremarkable. No suspicious lytic or blastic abnormality. SOFT TISSUES: Unremarkable. No discrete abdominal wall hernia. VASCULATURE: Unremarkable. Aorta is non-dilated. No aortic dissection. No obvious central pulmonary embolism although this study was not performed with the pulmonary embolism protocol. LYMPH NODES: Unremarkable. No enlarged lymph nodes. TUBES, LINES AND DEVICES: Right IJ infusion catheter remains in place extending into the right atrium. CT/CT Chest AND Abd W/ Contrast IMPRESSION: 1. Posttreatment changes of the right lung as described. 2. Question residual 3.2 cm neoplasm within the right upper lobe. 3. Left lower lobe pneumonia. 4. Improving bilateral pulmonary edema. 5. Question liver metastases. Electronically Signed: Ravi Roberts MD at 11:06 EDT ,
[2021-08-02] MEDS: 0.9% Saline Lock 10 ML Syringe IV (08:40)
== END | disposition home or self-care (01) ==
LOC: CT 08:24
PROVIDERS: PCP Family Medicine; Referring Provider Internal Medicine Hematology & Oncology; Visit Provider Internal Medicine Hematology & Oncology
DX: C34.90 Malignant neoplasm of unspecified part of unspecified bronchus or lung (principal)
CPT/HCPCS: 71260; 74160; Q9967; A4216

== ENCOUNTER 2021-10-11 09:30 | Outpatient (RCR) | payer OTHER, MEDICAID, SELFPAY ==
[2020-07-06 08:28] VITALS: BMI 31.4
--- NOTE | 2021-08-22 15:38 | HP.SP.EVAL ---
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 Carboplatin/etoposide was initiated on 05/27/19.? From 06/17/2019 ? 07/08/2019 she received 4500 cGy in 30 fractions delivered twice daily to the right hilum and mediastinum with concurrent cisplatin/etoposide (cycle 2).? Following completion of [address] chest/abdomen/pelvis (08/26/2019) showed evidence of complete or very near complete disease response without metastatic disease and brain MRI (08/28/2019) showed no evidence for brain metastases.? From 09/08/2019 ? 09/19/2019 she completed prophylactic cranial irradiation.? She developed localregional recurrence and thoracic metastatic disease in May 2020.? She was treated with Carboplatin, Etoposide, Atezolizumab (07/13/2020 ? 11/02/2020) and then was on maintenance Atezolizumab (11/23/2020 ? 02/15/2021).? Due to disease progression she was switched to Lurbinectedin (03/15/2021).? Brain MRI was completed 05/09/2021 which showed a new solitary enhancing lesion concerning for metastatic disease.? 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 Other PMH: Fatigue, GERD, history of left inguinal lymph node removal, Hypoxia, Liver lesion, Tobacco abuse (SEE EMR for full PMH) Smoking Status: Former smoker Hx Smoking: Yes - 1-2 ppd for 20 yrs Hx Tobacco Use: Yes - Pain Is pain an issue with your current prescribed condition?: No Patient Allergies - Allergies Allergies amoxicillin [From Augmentin] Adverse Reaction (Severe, Verified 08/17/21 10:15) Vomiting clavulanic acid [From Augmentin] Adverse Reaction (Severe, Verified 08/17/21 10:15) Vomiting Subjective Cog/Ling/Com - Subjective Cognitive/Linguistic/Communication: Increased difficulty with short term memory and word finding. Decreased ability for multitasking. 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 She has been unable to work since 2019 due to treatment, and she has notice a significant decline in her cognition. She manages medications without difficulty; however, it does take her extra time. her , Rufino, oversees her finance management. She notes vision changes. She is supposed to use new glasses, but she can't read with them. CLQT - CLQT CLQT Administered: Yes CLQT: Cognitive Linguistic Quick Test (CLQT) is a criterion - referenced assessment designed for adults between the ages of 18 and 89 with known or suspected neurological dysfuntions. The CLQT is to assess strength and weaknesses in five cognitive domains. Severity ratings are within normal limits, mild, moderate, severe deficits. The subtests are as follows: Date: 08/22/21 - Attention Attention: WNL - Memory Memory: WNL - Executive Functions Executive Functions: WNL - Language Language: WNL - Visuospatial Skills Visuospatial Skills: WNL - Composite Severity Rating Composite Severity Rating: WNL - Clock Drawing Severity Rating Clock Drawing Severity Rating: WNL - CLQT Comments Subtest Results and Domain Scores Personal Facts - 09/19. Symbol Cancellation - 01/23. Confrontation Naming - 11/21. Clock Design - . Story Retelling - 09/21. Symbol Trails - 11/21. Generative Naming - 05/21. Design Memory - 07/18. Mazes - 09/19. Design Generation - 05/25. Cognitive Domain Scores: (18-69 y.o. norms). Attention - 202 (WNL = 215-180) - WNL. Memory -168 (WNL = 185-155) ? WNL. Language - 30 (WNL = 40-24) ? WNL *low average performance. Executive Functions - 26 (WNL = 37-29) ? WNL *low average performance. Visuospatial Skills - 96 (WNL = 105-82) - WNL Test Impressions The patient presents with mild cognitive-linguistic impairment characterized by decreased attention, memory, word retrieval, and executive functioning secondary to hx of cranial irradiation and brain metastases. Plan - Plan Plan: Will recommend skilled OP speech therapy services to address mild cognitive-linguistic impairment characterized by decreased attention, memory, word retrieval, and executive functioning secondary to hx of cranial irradiation and brain metastases. Without skilled ST services, the patient is at risk for further cognitive decline and decreased independence completing daily living tasks. - Recommendations Treatment Warranted: Yes Treatment Warranted: Receptive/ Expressive Language, Cognition - Progress Prognosis: Good - Frequency Frequency: 1x/Week Duration: 4-8 weeks - Patient/Family Goal Patient/Family Goal: Improve word finding and memory - Goal #1-5 Goal #1: The patient will complete generative naming tasks X10-15 items with minimal verbal cues to improve word retrieval across 3 consecutive sessions. Goal #2: The patient will demonstrate use of learned compensatory strategies to improve word retrieval and conversational fluency with minimal verbal prompting 3X per session across 3 consecutive sessions. Goal #3: The patient will demonstrate delayed recall (5-10 minutes) of novel information (word lists, details of short paragraph, visual scene) with 80% accuracy with minimal verbal cues to improve short term memory across 3 consecutive sessions. Goal #4: The patient will demonstrate use of learned compensatory strategies to improve short term recall with minimal verbal prompting 3X per session across 3 consecutive sessions. Goal #5: The patient will complete executive functioning tasks (working memory, attention, planning, organization) with 90% accuracy with minimal verbal cues to promote independence completing higher level cognitive tasks across 3 consecutive sessions. Education - Patient Instruction Patient Education: Diagnosis, Treatment Plan, Goals Person Taught: Patient Teaching Method: Discussion Response to teaching: Verbalize understanding, Reinforcement needed
--- NOTE | 2021-11-23 09:06 | HP.SP.DC ---
ST Discharge Summary - Discharged: Discharge: The patient was evaluated by speech therapy on 08/22/2021. Skilled OP speech therapy services were initiated to address mild cognitive-linguistic impairment characterized by decreased attention, memory, word retrieval, and executive functioning secondary to hx of cranial irradiation and brain metastases. She attended 6 sessions from 08/22/2021-10/11/2021, demonstrating progress across all goals. She had excellent participation and appeared to be very motivated throughout the POC. The patient has elected for hospice care at this time, and additional speech therapy is not warranted.
== END 2021-10-11 19:00 | disposition home or self-care (01) ==
LOC: SP 09:30
PROVIDERS: PCP Family Medicine; Referring Provider Student in an Organized Health Care Education/Training Program; Visit Provider Student in an Organized Health Care Education/Training Program
DX: C79.31 Secondary malignant neoplasm of brain (principal)
CPT/HCPCS: 92507; 97802

== ENCOUNTER → 2021-10-11 | Outpatient (CLI) | payer OTHER, MEDICAID, SELFPAY ==
[2020-07-06 08:28] VITALS: BMI 31.4
--- NOTE | 2021-10-11 08:06 | CT_ITS ---
STUDY: CT CHEST T ABDOMEN WITH CONTRAST REASON FOR EXAM: Female, 51 years old. met NSCLC assess response to treatment. History of brain metastasis. RADIATION DOSAGE (If Supplied By Facility): CTDIvol = ( 8.03 ) mGy, DLP = ( 532.76 ) mGycm TECHNIQUE: Transaxial imaging was performed following intravenous administration of IV 100mL Isovue-300. Multiplanar coronal and sagittal images were reformatted. Individualized dose optimization techniques were used for this CT. COMPARISON: Comparison is made with prior examination dated 08/02/2021. FINDINGS: CHEST A right-sided portacatheter is seen with the tip in the superior vena cava. There is elevation of the right diaphragm. Once again, there is evidence of a heterogeneous parenchymal density along the medial aspect of the right upper lobe, right middle lobe and right lower lobe in keeping with the postradiation fibrosis. There is also evidence of bronchiectasis. The groundglass appearance of the right lung has almost completely cleared as compared to prior study. Stable emphysematous changes. There is no demonstrated pleural abnormality. There are calcifications of the coronary arteries. There has been further decrease in the subcarinal lymph nodes. Normal hilar regions. Normal unenhanced pulmonary arteries. Normal aorta arch and descending thoracic aorta. There are degenerative changes of the thoracic spine. ABDOMEN There is a new 1 cm hypodensity in the anterior aspect of the dome of the liver on the right side. Normal gallbladder and extrahepatic biliary system. Normal spleen. Normal pancreas. Normal bilateral adrenal glands. Normal right kidney. Normal left kidney. Normal visualized stomach. Normal small intestine. Normal colon. The appendix is visualized and appears normal. There is atherosclerotic calcification of the abdominal aorta, without a demonstrated aneurysm. Normal inferior vena cava. Normal retroperitoneum. Normal abdominal wall. Normal osseous structures. CT/CT Chest AND Abd W/ Contrast IMPRESSION: There is a new one semi hypodense nodule in the anterior aspect of the right lobe of liver at the level of the dome. Focal metastasis should be ruled out. Persistent right parahilar and medial aspect of the right upper lobe, right middle lobe and right lower lobe bronchiectasis suggestive of post radiation fibrosis. Interval decrease in size of the subcarinal lymph nodes. Electronically Signed: Alok Dunlap MD at 11:02 EDT ,
[2021-10-11] MEDS: 0.9% Saline Lock 10 ML Syringe IV (08:55)
== END | disposition home or self-care (01) ==
PROVIDERS: PCP Family Medicine; Referring Provider Nurse Practitioner Family; Visit Provider Nurse Practitioner Family
DX: C34.90 Malignant neoplasm of unspecified part of unspecified bronchus or lung (principal)
CPT/HCPCS: 71260; 74160; Q9967; A4216